=== PATIENT | male | born 1940 | race Caucasian/White ===

== ENCOUNTER → 2019-06-24 10:34 | Outpatient (CLI) | payer MEDICARE, OTHER, SELFPAY ==
--- NOTE | 2019-06-24 | DI.MRI.S_ITS ---
PROCEDURE: MR WRIST RT WO CON INDICATIONS: RIGHT WRIST PAIN TECHNIQUE: Noncontrast coronal proton density fast spin echo and T2 fast spin echo with fat saturation; coronal 3-D gradient echo, axial T1 spin echo and T2 fast spin echo with fat saturation, sagittal T1 spin echo through the wrist. COMPARISON: None. FINDINGS: Image quality: Excellent. Bones and cartilage: Moderate osteoarthritic changes throughout wrist joints are seen with extensive joint space narrowing, subchondral sclerosis and edema throughout distal radius, ulnar, and proximal carpal rope. Subchondral cyst formation versus bony erosive changes are noted involving distal radius, ulnar, scaphoid, lunate and draped atrium. Finding is most prominent involving distal radius. No acute fracture or dislocation. There is dorsal tilt of the lunate with increased scapholunate angle and capitolunate angle consistent with dorsal intercalated segmental instability. No gross avascular necrosis is seen. Carpal ligaments: There is rupture of the scapholunate ligament with widening of scapholunate interval. The lunotriquetral ligaments appear intact. In the absence of intra-articular contrast, the extrinsic carpal ligaments are not well identified. On sagittal images, the pisohamate ligament is not well-seen. Triangular fibrocartilage complex: There is nonvisualization of normal angula fibrocartilage complex consistent with chronic complex tear. Tendinosis and intrasubstance partial-thickness tear involving the adjacent extensor carpi ulnaris tendon is seen. Tendons and soft tissues: Lobulated cystic structure is noted in radial and volar aspect of wrist and measures up to 1.6 x 2 x 3.1 cm in its largest dimensions. This structure appears to be communicating with the adjacent radiocarpal joint space and may represent a enlarged synovial cyst given its location and appearance. A second 1.3 x 0.6 x 1.4 cm cystic structure is seen in lateral aspect of wrist joint superficial to the abductor pollicis longus tendon and may represent a ganglion cyst in this area. The carpal tunnel structures appear normal, including the median nerve. The ulnar nerve appears normal within Guyon's canal. All six extensor tendon compartments demonstrate normal morphology, without pathologic tendon sheath fluid. IMPRESSION: 1. Moderate osteophytic changes throughout wrist joints as described above. Extensive subcortical cyst formation in carpal bones, distal radius and ulna, erosion secondary to inflammatory arthropathy cannot be excluded. 2. 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 No avascular necrosis is seen. 3. Suggestion of a 1.6 x 2 x 3.1 cm synovial cyst in volar and radial aspect of left wrist communicating with radiocarpal joint. Suggestion of a 1.3 x 0.6 x 1.4 cm ganglion cyst superficial to the abductor pollicis longus tendon at the level of radial styloid. 4. Suggestion of ruptured scapholunate ligament. Tendinosis and low-grade intrasubstance partial-thickness tear involving the extensor carpi ulnaris tendon. 5. Suggestion of chronic complex tear involving triangular fibrocartilage. Dictated by: Bulmaro Wilson M.D. on 06/24/2019 at 13:39 Approved by: Bulmaro Wilson M.D. on 06/25/2019 at 10:08
== END ==
PROVIDERS: PCP Family Medicine; Visit Provider Orthopaedic Surgery
DX: M25.531 Pain in right wrist (principal)
CPT/HCPCS: 73221

== ENCOUNTER 2020-01-05 09:36 | Emergency (ER) | payer MEDICARE, OTHER, SELFPAY ==
[2020-01-05] VITALS (20 sets, daily range): BP systolic 111–141; BP diastolic 56–63; PULSE 28–38; RESP 17–31; TEMP 36.1; O2SAT 90–97; BMI 23.6
--- NOTE | 2020-01-05 09:44 | DI.RAD.S_ITS ---
PROCEDURE: XR CHEST 1V INDICATIONS: cp TECHNIQUE: One view of the chest was acquired. COMPARISON: [facility], , CHEST 2 VIEW, 02/06/2015, 19:25. FINDINGS: Surgical changes and devices: Knee defibrillator pad is evident overlying the right superior hemithorax. Lungs and pleura: Prominent lucency within the right hemithorax is similar to the previous exam and felt to represent bolus changes. No definite pneumothorax is appreciated. No pulmonary consolidation is evident. There is no pleural effusion. Interstitial prominence within the perihilar regions is noted. Mediastinum: Mediastinal contours appear normal. Heart size is normal. There is aortic atherosclerosis. Bones and chest wall: No suspicious bony lesions. Degenerative changes of the shoulders and spine are not well characterized. However, there does appear to be pseudoarticulation of the humeral heads with the undersurface of the acromion, suggesting chronic bilateral rotator cuff tears. Overlying soft tissues appear unremarkable. IMPRESSION: 1. Perihilar interstitial prominence probably relates to chronic interstitial changes. 2. No definite pneumonia. 3. Bullous changes within the right superior lung. Dictated by: Clark Cote M.D. on 01/05/2020 at 9:14 Approved by: Clark Cote M.D. on 01/05/2020 at 9:16
--- NOTE | 2020-01-05 09:55 | ED_ITS ---
HPI - Chest Pain General Chief Complaint: Weakness Stated Complaint: Chest feels compressed.Low BP Time Seen by Provider: 01/05/20 09:43 History of Present Illness HPI narrative: Patient here for often on substernal chest pressure 5/10 since Friday with headache. Heart rate noted. Denies any changes with his metoprolol. Takes 12.5 mg at bedtime. Director Construction Services is Dr. Kinney in [place]. No recent cardiac workup or testing. Patient states has history of stents, some have failed. Is on daily aspirin and Lipitor. Complains of generalized weakness and exertional dyspnea. No numbness tingling weakness or syncope. No recent illness cough cold congestion fever chills. Patient has not taken Viagra in at least 1 week Related Data Home Medications Medication Instructions Recorded Confirmed atorvastatin [Lipitor] 40 mg PO HS #0 02/27/17 07/13/19 ibuprofen 800 mg PO TID #0 02/27/17 07/13/19 sildenafil [Viagra] 100 mg PO PRN PRN #0 02/27/17 07/13/19 aspirin 81 mg tablet,delayed 81 mg PO DAILY 07/13/19 07/13/19 release mv,Ca,gsn-igeu-LX-lycopene PO 07/13/19 07/13/19 Allergies Allergy/AdvReac Type Severity Reaction Status Date / Time tetracycline [TETRACYCLINE] Allergy Mild upset Verified 07/13/19 09:58 stomach Review of Systems Review of Systems Narrative: GENERAL: Denies chills, fatigue, malaise, fever, sweats. HEENT: Denies sinus pain, ear pain, sore throat, difficulty swallowing, dizziness. RESPIRATORY: Denies cough, wheezing, hemoptysis, sputum. Complains of dyspnea CARDIOVASCULAR: Denies palpitations, orthopnea, edema, complains of chest pr essure GASTROINTESTINAL: Denies nausea, vomiting, abdominal pain, diarrhea, constipation, melena. : Denies dysuria, frequency, incontinence, hematuria, urinary retention. MUSCULOSKELETAL: denies weakness, joint pain, or bony pain SKIN: Denies rash, skin lesions, or other NEUROLOGIC: Denies weakness, headache, numbness, change in speech, confusion, seizures, incoordination. PSYCHIATRIC: No concerning psychosocial issues. ROS Unobtainable: All systems reviewed & are unremarkable except as noted in HPI and below Patient History Medical History Bunion of great toe of left foot (Acute) Callus of foot (Acute) Social History Smoking Status: Former smoker Smoking Status: Former smoker (Quit 1984) Exam Narrative Exam Narrative: GENERAL: patient appears stated age. Well-nourished, well- developed patient, in no distress, not toxic HEAD: Atraumatic. Normocephalic. EYES: Pupils equal round and reactive. Extraocular motions intact. No scleral icterus. No injection or drainage. ENT: Nose without bleeding, purulent drainage. Throat without erythema, tonsillar hypertrophy or exudate. Airway patent. NECK: Trachea midline. Non tender CARDIOVASCULAR: Regular rate and rhythm without murmurs, gallops, or rubs. Bradycardic RESPIRATORY: Clear to auscultation. Breath sounds equal bilaterally. No wheezes, rales, or rhonchi. GASTROINTESTINAL: Abdomen soft, non-tender, nondistended. EXTREMITIES: No edema or joint tenderness. BACK: Nontender without deformity or crepitance. No flank tenderness. NEURO: AOx4. SKIN: No rash or erythema of visible areas PSYCH: Not anxious, is cooperative Initial Vital Signs Initial Vital Signs: Vital Signs Pulse Rate 32 L 01/05/20 09:54 Respiratory Rate 21 01/05/20 09:54 Pulse Oximetry 97 01/05/20 09:54 Course Course Course Narrative: Time 12:06 p.m.. Spoke with hospitalist dr tellez, at [facility], he will admit the patient, where I spoke with director community center and EKG showing third-degree block. No intervention at this time Decision to Admit Date: 01/05/20 Decision to Admit time: 12:06 Orders Ordered: Discontinued Medications Aspirin (Aspirin Chew) 324 mg PO NOW ONE Stop: 01/05/20 09:59 Last Admin: 01/05/20 10:04 Dose: 243 mg Documented by: RMARTIN Sodium Chloride (Normal Saline 0.9%) 1,000 mls @ 1,000 mls/hr IV BOLUS ONE Stop: 01/05/20 12:09 Last Infusion: 01/05/20 12:20 Dose: 0 mls/hr Documented by: Admin: 01/05/20 11:15 Dose: 1,000 mls/hr Documented by: CRISTOPHER Reevaluation(s) Reevaluation #1: Blood pressure systolic 111, heart rate remains 30, Time: 11:15 Reevaluation #2: . Patient awake alert oriented. No pain. Reevaluation #3: l Consultations Consultation #1: Spoke with cardiology dr ritter...wants dr kinney contacted directly Time: : Consultation #2: Spoke with equipment operator warehouse at [facility], no beds available. Have to try [facility] or any other, currently on phone with [facility] equipment operator warehouse Time: 11:42 Consultation #3: s/w dr plascencia with [facility] cardiology.. Reviewed EKGs with him. He states no intervention indicated at this time no surgery no transfer indicated, patient is on metoprolol and needs to be off the metoprolol and observed. Patient can stay at this hospital or be transferred to [facility]. He states no bicarb indicated this time Calling our director community center again, dr manriquez, spoke with him and he states patient needs to be transferred to [facility] Vital Signs Vital signs: Vital Signs - 8 hr 01/05/20 09:54 01/05/20 10:00 01/05/20 10:01 Temperature 97 F L Pulse Rate 32 L 32 L 32 L Respiratory Rate 21 21 23 Blood Pressure 141/62 H 141/62 H Pulse Oximetry 97 97 96 01/05/20 10:30 01/05/20 10:31 01/05/20 11:00 Temperature Pulse Rate 31 L 31 L 30 L Respiratory Rate 26 H 24 17 Blood Pressure 120/56 L Pulse Oximetry 94 94 96 01/05/20 11:06 01/05/20 11:09 01/05/20 11:30 Temperature Pulse Rate 30 L 31 L 30 L Respiratory Rate 24 23 23 Blood Pressure 118/57 L 111/56 L Pulse Oximetry 96 96 95 01/05/20 11:32 Temperature Pulse Rate 30 L Respiratory Rate 17 Blood Pressure 125/59 L Pulse Oximetry 96 MDM - Chest Pain Differential Diagnosis Differential diagnosis: Likely unstable angina pectoris, chest pain and other (Third-degree block) Medical Records Data Attestation: I reviewed the patient's medical records. Lab Data Attestation: I reviewed the patient's lab results. Result diagrams: 01/05/20 09:52 01/05/20 09:52 Labs: Lab Results 01/05/20 01/05/20 01/05/20 Range/Units 09:52 09:52 09:52 WBC 9.3 (4.5-11.0) X10^3/uL RBC 4.85 (4.5-5.9) X10^6/uL Hgb 15.3 (13.5-17.5) g/dL Hct 44.6 (41-53) % MCV 91.9 (80-100) fL MCH 31.4 (26-34) PG MCHC 34.2 (30-36) % RDW 14.5 (11.6-14.8) % Plt Count 157 (150-400) X10^3/uL Neut % (Auto) 77.1 H (50-75) % Lymph % (Auto) 14.8 L (25-40) % [place] % (Auto) 7.0 (3-14) % Eos % (Auto) 0.6 L (2-4) % Baso % (Auto) 0.5 (0-2) % Neut # (Auto) 7100 H (5127-5565) /uL Lymph # (Auto) 1400 (3329-7115) /uL [place] # (Auto) 600 (0-900) /uL Eos # (Auto) 100 (0-450) /uL Baso # (Auto) 0 (0-100) /uL PT 10.8 (10.1-12.7) SECONDS INR 0.9 (0.9-1.3) APTT 31 (26.4-36.2) SECONDS Sodium 132 L (137-145) mmol/L Potassium 4.3 (3.4-5.1) mmol/L Chloride 98 (98-107) mmol/L Carbon Dioxide 23 (22-32) mmol/L BUN 51 H (9-20) mg/dL Creatinine 1.65 H (0.66-1.25) mg/dL Estimated GFR 40.3 L (>60) mL/min BUN/Creatinine Ratio 30.9 H (6-22) Glucose 200 H (80-110) mg/dL Calcium 9.2 (8.4-10.2) mg/dL Total Bilirubin 0.9 (0.2-1.3) mg/dL AST 34 (17-59) IU/L ALT 39 (<50) IU/L Alkaline Phosphatase 102 (38-126) U/L Total Creatine Kinase 69 (55-170) U/L CK-MB (CK-2) TNP CK-MB (CK-2) Rel Index TNP Troponin I 0.036 H (0.01-0.034) ng/mL Total Protein 6.6 (6.3-8.2) g/dL Albumin 4.3 (3.5-5.0) g/dL Globulin 2.3 (1.7-4.1) g/dL Albumin/Globulin Ratio 1.9 (1.0-2.8) Lipase 419 H (23-300) U/L COVID-19 PCR (Negative) 01/05/20 01/05/20 Range/Units 10:14 13:18 WBC (4.5-11.0) X10^3/uL RBC (4.5-5.9) X10^6/uL Hgb (13.5-17.5) g/dL Hct (41-53) % MCV (80-100) fL MCH (26-34) PG MCHC (30-36) % RDW (11.6-14.8) % Plt Count (150-400) X10^3/uL Neut % (Auto) (50-75) % Lymph % (Auto) (25-40) % [place] % (Auto) (3-14) % Eos % (Auto) (2-4) % Baso % (Auto) (0-2) % Neut # (Auto) (9127-3382) /uL Lymph # (Auto) (7961-3023) /uL [place] # (Auto) (0-900) /uL Eos # (Auto) (0-450) /uL Baso # (Auto) (0-100) /uL PT (10.1-12.7) SECONDS INR (0.9-1.3) APTT (26.4-36.2) SECONDS Sodium (137-145) mmol/L Potassium (3.4-5.1) mmol/L Chloride (98-107) mmol/L Carbon Dioxide (22-32) mmol/L BUN (9-20) mg/dL Creatinine (0.66-1.25) mg/dL Estimated GFR (>60) mL/min BUN/Creatinine Ratio (6-22) Glucose (80-110) mg/dL Calcium (8.4-10.2) mg/dL Total Bilirubin (0.2-1.3) mg/dL AST (17-59) IU/L ALT (<50) IU/L Alkaline Phosphatase (38-126) U/L Total Creatine Kinase (55-170) U/L CK-MB (CK-2) CK-MB (CK-2) Rel Index Troponin I 0.042 H (0.01-0.034) ng/mL Total Protein (6.3-8.2) g/dL Albumin (3.5-5.0) g/dL Globulin (1.7-4.1) g/dL Albumin/Globulin Ratio (1.0-2.8) Lipase (23-300) U/L COVID-19 PCR Negative (Negative) Imaging Data Chest x-ray: Radiologist's Impression: [address] [place] [address] [address] XRay Report Signed Patient: Kenney Liriano FMR#: [id number] : 9Acct:[id number] Age/Sex: 79 / MDate of Service: 01/05/20 Loc: ED Accession Number: [id number] Procedure: XR chest 1V Ordering Provider: John Campos MD PROCEDURE: XR CHEST 1V INDICATIONS: cp TECHNIQUE: One view of the chest was acquired. COMPARISON: [facility], CHEST 2 VIEW, 02/06/2015, 19:25. FINDINGS: Surgical changes and devices: Knee defibrillator pad is evident overlying the right superior hemithorax. Lungs and pleura: Prominent lucency within the right hemithorax is similar to the previous exam and felt to represent bolus changes. No definite pneumothorax is appreciated. No pulmonary consolidation is evident. There is no pleural effusion. Interstitial prominence within the perihilar regions is noted. Mediastinum: Mediastinal contours appear normal. Heart size is normal. There is aortic atherosclerosis. Bones and chest wall: No suspicious bony lesions. Degenerative changes of the shoulders and spine are not well characterized. However, there does appear to be pseudoarticulation of the humeral heads with the undersurface of the acromion, suggesting chronic bilateral rotator cuff tears. Overlying soft tissues appear unremarkable. IMPRESSION: 1. Perihilar interstitial prominence probably relates to chronic interstitial changes. 2. No definite pneumonia. 3. Bullous changes within the right superior lung. Dictated by: Clark Cote M.D. on 01/05/2020 at 9:14 Approved by: Clark Cote M.D. on 01/05/2020 at 9:16 ECG Data Attestation: I personally reviewed and interpreted this ECG as follows: Interpretation: EKG ventricular rate 34. Left bundle-branch block. Possible third-degree block, EKG different from February 06, 2015 at 7:59 p.m.. Repeat EKG at 11:12 a.m.. Ventricular rate 30, persisting third-degree block MDM Narrative Medical decision making narrative: Pacer pads placed as precautionary. Blood pressure stable. Will need to transfer patient to [facility]... Blood work is pending Time 11:57 a.m., I have spoken with 2 director community center, different opinion disposition placement for patient. At this time Dr. Burns, with [facility] states hospice care admit at [facility] or he will admit if they do not. Discharge Plan Departure Patient Disposition: [facility] Clinical Impression: Heart block AV third degree Discharge Date/Time: 01/05/20 13:44 Prescriptions: No Action aspirin [Aspir-81] 81 mg tablet,delayed release (DR/EC) 81 mg PO DAILY RF: 0 mv,Ca,xyg-ekfp-ZU-lycopene PO RF: 0 atorvastatin [Lipitor] 40 MG tablet 40 mg PO HS Qty: 0 RF: 0 ibuprofen 800 MG tablet 800 mg PO TID Qty: 0 RF: 0 sildenafil [Viagra] 100 MG tablet 100 mg PO PRN PRNQty: 0 RF: 0 Referrals: Robert Jeff MD [Primary Care Provider] -
--- NOTE | 2020-01-05 10:00 | PC.NURSE ---
Patient states starting having weakness Friday night. Came in today because of low pulse recording at home. Patient reports extreme fatigue, headache on and off, and pressure in chest that has been continuous since Friday. Reports shortness or breath and has some audible wheezing.
[2020-01-05 10:02] LABS: Add Manual Diff / Slide Review NO; Basophils Absolute Auto 0 /uL (0-100); Basophils Percent Auto 0.5 % (0-2); Eosinophils Absolute Auto 100 /uL (0-450); Eosinophils Percent Auto 0.6 % (2-4); Hematocrit 44.6 % (41-53); Hemoglobin 15.3 g/dL (13.5-17.5); Lymphocytes Absolute Auto 1400 /uL (1100-4500); Lymphocytes Percent Auto 14.8 % (25-40); Mean Corpuscular HGB Conc 34.2 % (30-36); Mean Corpuscular Hemoglobin 31.4 PG (26-34); Mean Corpuscular Volume 91.9 fL (80-100); Monocytes Absolute Auto 600 /uL (0-900); Neutrophils Absolute Auto 7100 /uL (1500-7000); Neutrophils Percent Auto 77.1 % (50-75); Platelet Count 157 X10^3/uL (150-400); Red Blood Cell Count 4.85 X10^6/uL (4.5-5.9); Red Cell Distribution Width 14.5 % (11.6-14.8); White Blood Cell Count 9.3 X10^3/uL (4.5-11.0)
[2020-01-05] MEDS: ASPIRIN 81 MG CHEW TAB 324 MG PO (10:04)
[2020-01-05 10:10] LABS: INR 0.9 (0.9-1.3); Prothrombin Time 10.8 SECONDS (10.1-12.7)
[2020-01-05 10:13] LABS: PTT Partial Thromboplastin Tim 31 SECONDS (26.4-36.2)
[2020-01-05 10:14] LABS: Alanine Aminotransferase 39 IU/L (<50); Albumin 4.3 g/dL (3.5-5.0); Albumin Globulin Ratio 1.9 (1.0-2.8); Alkaline Phosphatase 102 U/L (38-126); Aspartate Aminotransferase 34 IU/L (17-59); BUN Creatinine Ratio 30.9 (6-22); Bilirubin Total 0.9 mg/dL (0.2-1.3); Blood Urea Nitrogen 51 mg/dL (9-20); Calcium 9.2 mg/dL (8.4-10.2); Carbon Dioxide 23 mmol/L (22-32); Chloride 98 mmol/L (98-107); Creatine Kinase 69 U/L (55-170); Estimated Glomerular Filt Rate 40.3 mL/min (>60); Globulin 2.3 g/dL (1.7-4.1); Glucose 200 mg/dL (80-110); HEMOLYSIS < 15 (0-50); Lipase 419 U/L (23-300); Potassium 4.3 mmol/L (3.4-5.1); Sodium 132 mmol/L (137-145); Total Protein 6.6 g/dL (6.3-8.2)
[2020-01-05 10:26] LABS: Troponin I 0.036 ng/mL (0.01-0.034)
[2020-01-05] MEDS: SODIUM CHLORIDE 0.9% 1,000 ML 1000 ML IV (11:15)
[2020-01-05 11:18] LABS: COVID19 -Nasal RAPID Negative (Negative)
[2020-01-05 13:53] LABS: Troponin I 0.042 ng/mL (0.01-0.034)
== END 2020-01-05 13:44 | disposition short-term general hospital (02) ==
PROVIDERS: Emergency Provider Emergency Medicine; PCP Family Medicine
DX: I44.2 Atrioventricular block, complete (principal); R51 Headache; Z79.82 Long term (current) use of aspirin; I95.9 Hypotension, unspecified; R06.00 Dyspnea, unspecified
CPT/HCPCS: 36415; 71045; 80053; 82550; 83690; 84484; 85025; 85610; 85730; 87635; 93005; 96360; 99285

== ENCOUNTER → 2022-05-20 10:03 | Outpatient (CLI) | payer MEDICARE, OTHER, SELFPAY ==
--- NOTE | 2022-05-20 | DI.ECHO.S_ITS ---
Version: 1 Study ID: [id number] [place] [id number] Name: YASIR RUTH Study Date: 05/20/2022, 10: 14 AM : 1940 BP: 132 / 69 mmHg Gender: Male Height: 64 in Age: 82 Years Weight: 130 lb BSA: 1.63 mA? Ordering: VICENTA BASS Referring: VICENTA BASS Clinician: Nena Melendez Reason For Study: SHORTNESS OF BREATH History: Summary Statements Sinus rhythm with wide QRS complexes most likely due to RV pacing. Normal LV size and wall thickness. Septal dyssynchrony consistent with RV pacing; basal inferior hypokinesis and basal inferolateral hypokinesis consistent with prior PDA territory infarction. Otherwise normal wall motion. EF is 50-55% Moderate LA enlargement. Otherwise normal chamber sizes. No significant valvular abnormalities. Compared to prior study 09/19/2014 Micra device is newly visualized. Procedure: A two-dimensional transthoracic echocardiogram with color flow and Doppler was performed. The study quality was technically adequate. Comparison is made with the echocardiogram of 09/19/2014. The patient has a paced rhythm. The heart rate ranged between 65-74 bpm during the study. Left Ventricle: The left ventricle is normal in size and wall thickness. Left ventricular ejection fraction is estimated to be 50-55%. Right Ventricle: The right ventricle is normal size. The right ventricular systolic function is normal. Atria: The left atrium is moderately dilated. Right atrial size is normal. There is no Doppler evidence for an interatrial shunt. Mitral Valve: The mitral valve leaflets appear mildly thickened, but open well. There is mild mitral regurgitation. Aortic Valve: The aortic valve is trileaflet. The aortic valve opens well. There is no aortic valve stenosis. There is mild aortic regurgitation. Tricuspid Valve: The tricuspid valve is normal in structure and function. There is mild tricuspid regurgitation. The right ventricular systolic pressure is estimated to be at least 23 mmHg based on an estimated right atrial pressure of 3 mm Hg. Pulmonic Valve: The pulmonic valve is not well visualized. There is no pulmonic valvular regurgitation. Great Vessels: The aortic root is normal size. The dimensions of the ascending aorta are normal. The IVC is of normal diameter and collapses greater than 50% with a sniff. This suggests a low right atrial pressure of 3 mm Hg. Pericardium/ Pleura: There is no pericardial effusion. There is no pleural effusion. 2D and M-Mode Measurements and Calculations LVIDd: 4.3 cm LVOT diam: 2.11 cm LVIDs: 3.7 cm Ao root diam: 3.1 cm IVSd: 1.02 cm asc Aorta Diam: 3.7 cm LVPWd: 0.95 cm LV mazariegos. diameter/BSA (cm/m^2): 2.6 LV sys. diameter/BSA (cm/m^2): 2.25 RVD1 (basal): 3.2 cm IVC diam: 1.85 cm TAPSE: 2.00 cm LA A4 area: 21.2 visual lead? RA area: 16.3 visual lead? LA A2 area: 22.2 visual lead? RA long axis: 5.1 cm LA length (vol): 5.7 cm RA vol: 44.4 ml LA vol: 69.6 ml RA : 27.2 ml/mA? LA vol index: 42.7 ml/mA? Doppler Measurements and Calculations Ao V2 max: 135.0 cm/sec LVOT Max Russ: 69.9 cm/sec Ao V2 mean: 93.1 cm/sec LV V1 max P.95 mmHg Ao V2 VTI: 32.8 cm LV V1 VTI: 12.5 cm Ao max P.3 mmHg Ao mean P.0 mmHg JESSIE(I,D): 1.33 visual lead? JESSIE(V,D): 1.82 visual lead? JESSIE indexed to BSA (cm^2/m^2): 0.82 sev ratio: 0.38 MV E max russ: 63.2 cm/sec MV dec time: 0.22 sec MV A max russ: 92.1 cm/sec MV E/A: 0.69 Med Peak E' Russ: 3.7 cm/sec Lat Peak E' Russ: 8.2 cm/sec E/e' average: 12.5 TR max russ: 221.3 cm/sec TR max P.6 mmHg Electronically signed by: Vicenta Bass M.D. 05/21/2022, 3: 15 PM
== END ==
PROVIDERS: PCP Internal Medicine; Referring Provider Internal Medicine; Visit Provider Internal Medicine
DX: R06.02 Shortness of breath (principal); I08.3 Combined rheumatic disorders of mitral, aortic and tricuspid valves
CPT/HCPCS: 93306

== ENCOUNTER 2024-11-07 16:01 | Inpatient (IN) | payer MEDICARE, OTHER, SELFPAY ==
[2024-11-07] VITALS (17 sets, daily range): BP systolic 134–173; BP diastolic 63–72; PULSE 63–82; RESP 18; TEMP 36.6; O2SAT 88–99; BMI 22.4
--- NOTE | 2024-11-07 16:11 | DI.RAD.S_ITS ---
PROCEDURE: XR HAND LT MIN 3V INDICATIONS: fall, pain TECHNIQUE: 3 views of the hand(s) acquired. COMPARISON: None. FINDINGS: Bones: No fractures or dislocations. Carpal bones are normally aligned. No suspicious bony lesions. Degenerative changes are seen throughout, which are most prominent involving the 1st carpometacarpal joint. Milder degenerative changes are seen elsewhere. There is abnormal widening of the scapholunate interface, 5 mm. There is focal irregularity and narrowing of the radiocarpal joint. Soft tissues: No suspicious soft tissue calcifications. IMPRESSION: No displaced fracture can be seen on these plain films. Focal prominent degenerative change seen involving the 1st carpometacarpal joint. Presumed prior scapholunate ligament tear, with widening of the scapholunate interface. Dictated by: Abdelrahman Rodriguez M.D. on 11/07/2024 at 15:59 Approved by: Abdelrahman Rodriguez M.D. on 11/07/2024 at 16:01
--- NOTE | 2024-11-07 16:11 | DI.RAD.S_ITS ---
PROCEDURE: XR ELBOW LT MIN 3V INDICATIONS: fall, pain TECHNIQUE: 3 views of the elbow were acquired. COMPARISON: None. FINDINGS: Bones: No fractures or dislocations. No suspicious bony lesions. Soft tissues: No elbow joint effusion. No suspicious soft tissue calcifications. IMPRESSION: No acute elbow fracture or dislocation. No significant joint effusion. Dictated by: Bulmaro Wilson M.D. on 11/07/2024 at 17:00 Approved by: Bulmaro Wilson M.D. on 11/07/2024 at 17:00
--- NOTE | 2024-11-07 16:11 | DI.RAD.S_ITS ---
PROCEDURE: XR HIP W PEL IF DONE LT 2V INDICATIONS: fall, pain TECHNIQUE: AP pelvis with lateral view(s) of the left hip(s). COMPARISON: [facility], CR, XR HAND LT MIN 3V, 11/07/2024, 16:22. [facility], CR, XR ELBOW LT MIN 3V, 11/07/2024, 16:22. FINDINGS: Bones: There is a mildly impacted transcervical fracture seen involving the left femoral neck. No additional fractures are detected. No hip dislocation can be seen. Generalized degenerative changes are seen. Soft tissues: The visualized bowel gas pattern is normal. No suspicious soft tissue calcifications. IMPRESSION: Mildly impacted transcervical fracture of the left femoral neck. Dictated by: Abdelrahman Rodriguez M.D. on 11/07/2024 at 16:02 Approved by: Abdelrahman Rodriguez M.D. on 11/07/2024 at 16:04
--- NOTE | 2024-11-07 18:13 | ED.FALL ---
HPI - Fall General Chief Complaint: Fall Stated Complaint: fell left arm bleeding, hip pain Time Seen by Provider: 11/07/24 17:57 Source: patient Mode of arrival: Ambulatory History of Present Illness HPI Narrative: 84-year-old male was walking at his [place] property, tripped on something outside, had ground level fall, complains of pain in laceration to his left hand and left elbow, also pain to his left hip without laceration in that area. Walked some more on the left hip, although limping in pain. Denies loss of consciousness, nausea or vomiting. Denies neck pain. Denies truncal injuries. Denies injuries to his right lower extremity, right upper extremity. Related Data Home Medications Medication Instructions Recorded Confirmed atorvastatin 40 mg tablet (Lipitor) 40 mg PO HS ##0 02/27/17 11/08/24 aspirin 81 mg tablet,delayed 81 mg PO DAILY 07/13/19 11/08/24 release (Aspir-) losartan 100 mg tablet 100 mg PO DAILY 11/07/24 11/07/24 hydrochlorothiazide 125 mg PO DAILY 11/08/24 11/08/24 melatonin 3 mg PO BEDTIME 11/08/24 11/08/24 metoprolol tartrate 25 mg PO DAILY 11/08/24 11/08/24 timolol maleate 0.5 % eye drops 1 drp EYE-RIGHT BID 11/08/24 11/08/24 Allergies Allergy/AdvReac Type Severity Reaction Status Date / Time tetracycline [TETRACYCLINE] AdvReac Mild upset Verified 11/07/24 16:04 stomach Patient History Medical History (Updated 11/07/24 @ 22:55 by Hayden Ring MD) Bunion of great toe of left foot Callus of foot Social History household members: none Smoking Status: Former smoker Exam Narrative Exam Narrative: GENERAL: Well-developed patient, in mild distress. HEAD: Atraumatic. Normocephalic. EYES: Pupils equal round and reactive. Extraocular motions intact. No scleral icterus. No injection or drainage. ENT: Nose without bleeding, purulent drainage. Throat without erythema, tonsillar hypertrophy or exudate. Airway patent. NECK: Trachea midline. Non tender CARDIOVASCULAR: Regular rate and rhythm without murmurs, gallops, or rubs. RESPIRATORY: Clear to auscultation. Breath sounds equal bilaterally. No wheezes, rales, or rhonchi. GASTROINTESTINAL: Abdomen soft, non-tender, nondistended. EXTREMITIES: Semi-[place] laceration 1st webspace left hand 7 cm. Curvilinear laceration left elbow area 5 cm. No tenderness anatomic snuffbox. No lower limb length discrepancy. Some tenderness lateral trochanteric in left anterior hip. BACK: Nontender without deformity or crepitance. No flank tenderness. NEURO: AOx3. Motor functions grossly nonfocal SKIN: No rash or erythema of visible areas Initial Vital Signs Initial Vital Signs: Vital Signs Temperature 97.9 F 11/07/24 16:04 Pulse Rate 67 11/07/24 16:04 Respiratory Rate 18 11/07/24 16:04 Blood Pressure 153/70 H 11/07/24 16:04 Pulse Oximetry 96 11/07/24 16:04 Oxygen Delivery Method Room Air 11/07/24 16:04 Procedures Laceration Repair Laceration 1: Time of procedure: 22:38 Site: hand (Left dorsal hand curvilinear laceration in 1st webspace, no visible ligamentous bony foreign body materials) Side (If applicable): left Size (cm): 5 Description: irregular (Curvilinear in the 1st webspace dorsal aspect left hand) Depth: simple, single layer Local Anesthetic: lidocaine 1% Amount of anesthesia used (mL): 6 Pre-repair: irrigated extensively Skin layer closed with: nylon (Simple interrupted tack-down sutures) Skin layer suture size: 4-0 Number of sutures: 7 Technique: simple, interrupted Laceration 2: Time of procedure: 22:41 Site: upper extremity (Left proximal forearm elbow area flap laceration superficial) Side (If applicable): left Size (cm): 4 Description: linear Local Anesthetic: lidocaine 1% Skin layer closed with: nylon Skin layer suture size: 4-0 Number of sutures: 5 Technique: simple, interrupted Course Orders Ordered: ED Orders 11/07/24 20:10 Urinalysis and Microscopic Stat 11/07/24 22:46 CT LE LT wo con Stat Acetaminophen (Acetaminophen 325 Mg Tablet) 650 mg PO Q6H PRN PRN Reason: Fever/Mild Pain (1-3) Hydrocodone Bitart/Acetaminophen (Hydrocodone/Acet 5/325 Tablet) 1 tab PO Q4H PRN PRN Reason: Pain, Moderate (4-6) Hydromorphone HCl (Hydromorphone 0.5 Mg Inj) 0.5 mg IV Q2H PRN PRN Reason: Pain, Severe (7-10) Last Admin: 11/08/24 03:14 Dose: 0.5 mg Documented By: Admin: 11/08/24 00:32 Dose: 0.5 mg Documented By: AT Sodium Chloride (Normal Saline 0.9%) 1,000 mls @ 75 mls/hr IV CONT MOHIT Last Admin: 11/08/24 00:32 Dose: 75 mls/hr Documented By: AT Naloxone HCl (Naloxone 0.4 Mg/Ml Vial) 0.2 mg IV Q2MIN PRN PRN Reason: Opiate Reversal Ondansetron HCl (Ondansetron 4 Mg/2 Ml Inj) 4 mg IV Q8HR PRN PRN Reason: Nausea And Vomiting Discontinued Medications Bacitracin (Bacitracin Oint 0.9 Gm Pckt) 2 applic TOP NOW ONE Stop: 11/07/24 21:56 Last Admin: 11/07/24 22:08 Dose: 2 applic Documented By: APOLLO Hydromorphone HCl (Hydromorphone 0.5 Mg Inj) 0.5 mg IV NOW ONE Stop: 11/07/24 20:40 Last Admin: 11/07/24 20:45 Dose: 0.5 mg Documented By: MAGNO Lidocaine HCl (Lidocaine 2% Inj Mdv 20ml) 10 ml INJ INTRA-OP ONE Stop: 11/07/24 18:39 Last Admin: 11/07/24 18:45 Dose: Not Given Documented By: SOLA Lidocaine HCl (Lidocaine 2% Inj Mdv 20ml) 5 ml INJ INTRA-OP ONE Stop: 11/07/24 18:44 Last Admin: 11/07/24 21:44 Dose: 5 ml Documented By: APOLLO Lidocaine HCl (Lidocaine 2% Inj Mdv 20ml) 5 ml INJ INTRA-OP ONE Stop: 11/07/24 18:49 Last Admin: 11/07/24 21:44 Dose: 5 ml Documented By: APOLLO Ondansetron HCl (Ondansetron 4 Mg/2 Ml Inj) 4 mg IV NOW ONE Stop: 11/07/24 20:41 Last Admin: 11/07/24 20:44 Dose: 4 mg Documented By: MAGNO Vital Signs Vital signs: Vital Signs - 8 hr 11/07/24 20:30 11/07/24 20:30 11/07/24 21:00 Pulse Rate 71 Blood Pressure 158/67 H 134/63 Pulse Oximetry 97 Oxygen Delivery Method Oxygen Flow Rate 11/07/24 21:00 11/07/24 21:18 11/07/24 21:30 Pulse Rate 74 Blood Pressure 138/63 Pulse Oximetry 88 L 96 Oxygen Delivery Method Room Air Nasal Cannula Oxygen Flow Rate 2 11/07/24 21:30 11/07/24 22:00 11/07/24 22:00 Pulse Rate 74 82 Blood Pressure 141/66 H Pulse Oximetry 98 96 Oxygen Delivery Method Nasal Cannula Nasal Cannula Oxygen Flow Rate 2 2 11/07/24 22:30 11/07/24 22:30 Pulse Rate 73 Blood Pressure 141/67 H Pulse Oximetry 98 Oxygen Delivery Method Nasal Cannula Oxygen Flow Rate MDM - Fall Lab Data Attestation: I reviewed the patient's lab results. Lab results narrative: White blood cell count 8400, hemoglobin 15, platelets adequate. Glucose 134. BUN 20 with creatinine 0.85. Serum CO2 30. Sodium 136, potassium 4.3. Liver functions unremarkable. INR 1.0 normal. Urinalysis negative. 11/07/24 18:36 11/07/24 18:36 Labs: Lab Results 11/07/24 11/07/24 Range/Units 18:36 20:10 WBC 8.4 (4.5-11.0) X10^3/uL RBC 4.71 (4.5-5.9) X10^6/uL Hgb 15.0 (13.5-17.5) g/dL Hct 43.1 (41-53) % MCV 91.6 (80-100) fL MCH 31.9 (26-34) PG MCHC 34.8 (30-36) % RDW 15.0 H (11.6-14.8) % Plt Count 105 L (150-400) X10^3/uL Neut % (Auto) 80.8 H (50-75) % Lymph % (Auto) 10.6 L (25-40) % Morrill % (Auto) 6.8 (3-14) % Eos % (Auto) 1.3 L (2-4) % Baso % (Auto) 0.5 (0-2) % Neut # (Auto) 6800 (7156-4018) /uL Lymph # (Auto) 900 L (3902-9458) /uL [place]rill # (Auto) 600 (0-900) /uL Eos # (Auto) 100 (0-450) /uL Baso # (Auto) 0 (0-100) /uL PT 11.8 (9.4-12.5) SECONDS INR 1.0 (0.9-1.3) Sodium 136 L (137-145) mmol/L Potassium 4.3 (3.4-5.1) mmol/L Chloride 101 (98-107) mmol/L Carbon Dioxide 30 (22-32) mmol/L BUN 20 (9-20) mg/dL Creatinine 0.85 (0.66-1.25) mg/dL Estimated GFR > 60 (>60) mL/min BUN/Creatinine Ratio 23.5 H (6-22) Glucose 134 H (70-99) mg/dL Calcium 8.8 (8.4-10.2) mg/dL Total Bilirubin 1.0 (0.2-1.3) mg/dL AST 22 (17-59) IU/L ALT 21 (<50) IU/L Alkaline Phosphatase 89 (38-126) U/L Total Protein 6.3 (6.3-8.2) g/dL Albumin 4.0 (3.5-5.0) g/dL Globulin 2.3 (1.7-4.1) g/dL Albumin/Globulin Ratio 1.7 (1.0-2.8) Urine Color Yellow Urine Appearance Clear Urine pH 6.0 (4.5-8.0) Ur Specific [place] 1.010 (1.000-1.035) Urine Protein Negative (Negative) Urine Glucose (UA) Negative (Negative) g/dL Urine Ketones Negative (NEGATIVE) Urine Occult Blood Negative (Negative) Urine Nitrate Negative (Negative) Urine Bilirubin Negative (NEGATIVE) Urine Urobilinogen 0.2 (0.2) E.U./dL Ur Leukocyte Esterase Negative (NEGATIVE) Urine RBC None seen (0-5/HPF) Urine WBC None seen (0-5/HPF) Ur Squamous Epith Cells None seen (0-5/HPF) Urine Bacteria None seen (None) Ur Culture Indicated? Cult not indicated Vol Urine Centrifuged 10ml (spun) Imaging Data Extremity x-ray #1: Radiologist's Impression: [address] [address] XRay Report Signed Patient: Kenney Liriano MR#: [id number] : 1940 Acct:[id number] Age/Sex: 84 / M Date of Service: 11/07/24 Loc: ED Accession Number: [id number] Procedure: XR hip w pel LT 2V Ordering Provider: Una Walker MD PROCEDURE: XR HIP W PEL IF DONE LT 2V INDICATIONS: fall, pain TECHNIQUE: AP pelvis with lateral view(s) of the left hip(s). COMPARISON: [facility], CR, XR HAND LT MIN 3V, 11/07/2024, 16:22. [facility], CR, XR ELBOW LT MIN 3V, 11/07/2024, 16:22. FINDINGS: Bones: There is a mildly impacted transcervical fracture seen involving the left femoral neck. No additional fractures are detected. No hip dislocation can be seen. Generalized degenerative changes are seen. Soft tissues: The visualized bowel gas pattern is normal. No suspicious soft tissue calcifications. IMPRESSION: Mildly impacted transcervical fracture of the left femoral neck. Dictated by: Abdelrahman Rodriguez M.D. on 11/07/2024 at 16:02 Approved by: Abdelrahman Rodriguez M.D. on 11/07/2024 at 16:04 Extremity x-ray #2: Radiologist's Impression: [address] [address] XRay Report Signed Patient: Kenney Liriano MR#: [id number] : 1940 Acct:[id number] Age/Sex: 84 / M Date of Service: 11/07/24 Loc: ED Accession Number: [id number] Procedure: XR hand LT min 3V Ordering Provider: Una Walker MD PROCEDURE: XR HAND LT MIN 3V INDICATIONS: fall, pain TECHNIQUE: 3 views of the hand(s) acquired. COMPARISON: None. FINDINGS: Bones: No fractures or dislocations. Carpal bones are normally aligned. No suspicious bony lesions. Degenerative changes are seen throughout, which are most prominent involving the 1st carpometacarpal joint. Milder degenerative changes are seen elsewhere. There is abnormal widening of the scapholunate interface, 5 mm. There is focal irregularity and narrowing of the radiocarpal joint. Soft tissues: No suspicious soft tissue calcifications. IMPRESSION: No displaced fracture can be seen on these plain films. Focal prominent degenerative change seen involving the 1st carpometacarpal joint. Presumed prior scapholunate ligament tear, with widening of the scapholunate interface. Dictated by: Abdelrahman Rodriguez M.D. on 11/07/2024 at 15:59 Approved by: Abdelrahman Rodriguez M.D. on 11/07/2024 at 16:01 Extremity x-ray #3: Radiologist's Impression: Close Elbow X-Ray (Signed) Bulmaro Wilson - 11/07/24 Hand X-Ray (Signed) Abdelrahman Rodriguez - 11/07/24 Hip X-Ray (Signed) Abdelrahman Rodriguez - 11/07/24 Launch?[place] [address] XRay Report Signed Patient: Kenney Liriano MR#: [id number] : 1940 Acct:[id number] Age/Sex: 84 / M Date of Service: 11/07/24 Loc: ED Accession Number: [id number] Procedure: XR elbow LT min 3V Ordering Provider: Una Walker MD PROCEDURE: XR ELBOW LT MIN 3V INDICATIONS: fall, pain TECHNIQUE: 3 views of the elbow were acquired. COMPARISON: None. FINDINGS: Bones: No fractures or dislocations. No suspicious bony lesions. Soft tissues: No elbow joint effusion. No suspicious soft tissue calcifications. IMPRESSION: No acute elbow fracture or dislocation. No significant joint effusion. Dictated by: Bulmaro Wilson M.D. on 11/07/2024 at 17:00 Approved by: Bulmaro Wilson M.D. on 11/07/2024 at 17:00 Chest x-ray: Radiologist's Impression: [place] [address] XRay Report Signed Patient: Kenney Liriano MR#: [id number] : 1940 Acct:[id number] Age/Sex: 84 / M Date of Service: 11/07/24 Loc: ED Accession Number: [id number] Procedure: XR chest 1V Ordering Provider: Hayden Ring MD PROCEDURE: XR CHEST 1V INDICATIONS: pre-op TECHNIQUE: One view of the chest was acquired. COMPARISON: [facility], CR, XR CHEST 1V, 01/05/2020, 9:57. FINDINGS: Surgical changes and devices: Left sided lead less pacer is seen. Lungs and pleura: Severe bullous disease in bilateral upper lung thomas are seen worse on the right side. No pleural effusions or pneumothorax. Mediastinum: Mediastinal contours appear normal. Heart size is normal. Bones and chest wall: No suspicious bony lesions. Overlying soft tissues appear unremarkable. IMPRESSION: Severe bullous disease. No acute cardiopulmonary pathology. Dictated by: Bulmaro Wilson M.D. on 11/07/2024 at 19:14 Approved by: Bulmaro Wilson M.D. on 11/07/2024 at 19:15 ECG Data Attestation: I personally reviewed and interpreted this ECG as follows: Interpretation: Atrial sensed ventricular paced rhythm, rate 71 beats per minute. [place] 254, QRS 170, QTC 478. MDM Narrative Medical decision making narrative: 84-year-old male with mechanical ground level fall at home 2:00 p.m. earlier today, with left hip pain, also skin tear lacerations to the left elbow and left 1st webspace of the hand. he does not take blood thinner medications. No neck pain. No head injury symptoms. Screening x-rays ordered from triage. X-ray left hand negative. X-rays left elbow negative. X-rays left hip shows transcervical fracture with mild impaction. Preop studies ordered. Last tetanus less than 5 years ago. See tacked down laceration repair procedure notes for left hand and left elbow area superficial flap-like avulsion skin lacerations, tacked down. Nonstick dressings applied. X-ray left elbow, no fracture. See radiology report. X-ray left hand, possible scapholunate widening, no acute fracture. See radiology report. X-ray left hip, femoral neck fracture noted. See radiology report. 2229, case discussed with Orthopedic surgery Dr. Ojeda, who reviewed x-ray, we would like additional anatomic information CT for surgical planning. Admit to hospitalist service otherwise. Regarding wrist okay to be placed in Velcro wrist splint for now. 2245, case discussed with hospitalist Dr. Reed who accepts patient for admission to inpatient service CT left hip reconfirms impacted femoral neck fracture, no other injuries described. See radiology report. Discharge Plan Departure Patient Disposition: Admitted As Inpatient Clinical Impression: Femur fracture, left, Elbow laceration, Hand laceration, Scapho-lunate dissociation Admit Date/Time: 11/07/24 22:46 Admit Provider: Eddie Reed
--- NOTE | 2024-11-07 18:15 | EKG_ITS ---
[place] [address] [place] [id number] Test Date: 2024-11-07 Pat Name: Kenney Liriano Department: [facility] Room: Gender: Male [id number]: WIL : 1940 Requested By: Order Number: [id number] Reading MD: Joseph Hernandez Measurements Intervals [place] Rate: 71 P: 74 CA: 254 QRS: 89 QRSD: 170 T: -49 QT: 440 QTc: 478 Interpretive Statements Atrial-sensed ventricular-paced rhythm with prolonged AV conduction Electronically Signed On 11-11-2024 17:06:54 PDT by Joseph Hernandez
--- NOTE | 2024-11-07 18:16 | DI.RAD.S_ITS ---
PROCEDURE: XR CHEST 1V INDICATIONS: pre-op TECHNIQUE: One view of the chest was acquired. COMPARISON: [facility], CR, XR CHEST 1V, 01/05/2020, 9:57. FINDINGS: Surgical changes and devices: Left sided lead less pacer is seen. Lungs and pleura: Severe bullous disease in bilateral upper lung thomas are seen worse on the right side. No pleural effusions or pneumothorax. Mediastinum: Mediastinal contours appear normal. Heart size is normal. Bones and chest wall: No suspicious bony lesions. Overlying soft tissues appear unremarkable. IMPRESSION: Severe bullous disease. No acute cardiopulmonary pathology. Dictated by: Bulmaro Wilson M.D. on 11/07/2024 at 19:14 Approved by: Bulmaro Wilson M.D. on 11/07/2024 at 19:15
[2024-11-07 18:52] LABS: Add Manual Diff / Slide Review NO; Basophils Absolute Auto 0 /uL (0-100); Basophils Percent Auto 0.5 % (0-2); Eosinophils Absolute Auto 100 /uL (0-450); Eosinophils Percent Auto 1.3 % (2-4); Hematocrit 43.1 % (41-53); Lymphocytes Absolute Auto 900 /uL (1100-4500); Lymphocytes Percent Auto 10.6 % (25-40); Mean Corpuscular HGB Conc 34.8 % (30-36); Mean Corpuscular Hemoglobin 31.9 PG (26-34); Mean Corpuscular Volume 91.6 fL (80-100); Monocytes Absolute Auto 600 /uL (0-900); Monocytes Percent Auto 6.8 % (3-14); Neutrophils Absolute Auto 6800 /uL (1500-7000); Neutrophils Percent Auto 80.8 % (50-75); Platelet Count 105 X10^3/uL (150-400); Red Blood Cell Count 4.71 X10^6/uL (4.5-5.9); White Blood Cell Count 8.4 X10^3/uL (4.5-11.0)
[2024-11-07 18:56] LABS: Prothrombin Time 11.8 SECONDS (9.4-12.5)
[2024-11-07 18:58] LABS: Alanine Aminotransferase 21 IU/L (<50); Albumin Globulin Ratio 1.7 (1.0-2.8); Alkaline Phosphatase 89 U/L (38-126); Aspartate Aminotransferase 22 IU/L (17-59); BUN Creatinine Ratio 23.5 (6-22); Blood Urea Nitrogen 20 mg/dL (9-20); Calcium 8.8 mg/dL (8.4-10.2); Carbon Dioxide 30 mmol/L (22-32); Chloride 101 mmol/L (98-107); Estimated Glomerular Filt Rate > 60 mL/min (>60); Globulin 2.3 g/dL (1.7-4.1); Glucose 134 mg/dL (70-99); HEMOLYSIS 15 (0-50); Potassium 4.3 mmol/L (3.4-5.1); Sodium 136 mmol/L (137-145); Total Protein 6.3 g/dL (6.3-8.2)
[2024-11-07] MEDS: ONDANSETRON 4 MG/2 ML INJ IV (20:44)
[2024-11-07] MEDS: HYDROMORPHONE 0.5 MG INJ IV (20:45)
[2024-11-07 20:59] LABS: Appearance Urine UA CLEAR; Bilirubin Urine UA NEGATIVE (NEGATIVE); Color Urine UA YELLOW; Glucose Urine UA NEGATIVE (Negative); Ketones Urine UA NEGATIVE (NEGATIVE); Leukocyte Esterase Urine UA NEGATIVE (NEGATIVE); Nitrite Urine UA NEGATIVE (Negative); Occult Blood Urine UA NEGATIVE (Negative); Protein Urine UA NEGATIVE (Negative); Urobilinogen Urine UA 0.2 E.U./dL (0.2)
[2024-11-07 21:09] LABS: Urine Volume 10mL (spun)
[2024-11-07 21:10] LABS: Bacteria Urine None Seen; Culture Indicated Urine Cult Not Indicated; RBC Urine None Seen (0-5/HPF); Squamous Epithelial Cell Urine None Seen (0-5/HPF); WBC Urine None Seen (0-5/HPF)
--- NOTE | 2024-11-07 21:19 | PC.NURSE ---
Pt noted with desats to 84% on RA after dilaudid admin. Placed on O2 at @2L NC. Sats improved to mid-90's. Pt easily arousable.
[2024-11-07] MEDS: LIDOCAINE 2% INJ MDV 20ML 5 ML INJ ×2 (21:44)
[2024-11-07] MEDS: BACITRACIN OINT 0.9 GM PCKT 2 APPLIC TOP (22:08)
--- NOTE | 2024-11-07 22:46 | DI.CT.S_ITS ---
PROCEDURE: CT LE LT W CON INDICATIONS: ortho request for surgical approach plan TECHNIQUE: Noncontrast 3 mm axial sections acquired through the bony pelvis. Additional 3 mm axial sections acquired through the symptomatic hip joint, with coronal and sagittal reformats. COMPARISON: [facility], CR, XR HIP W PEL LT 2V, 11/07/2024, 16:22. FINDINGS: Image quality: Diagnostic Bones: Mildly impacted subcapital left hip fracture is present. No dislocation. The left pubic ring appears intact. There are degenerative femoral acetabular and pubic symphysis changes. Chronic appearing bone fragment is seen adjacent to the left ischium. Partially seen lumbosacral degenerative changes also present Soft tissues: Atherosclerotic calcifications. Partially seen suspected renal cysts. Edema and likely hemorrhage is seen surrounding the left hip joint, extending along the iliacus and psoas muscles. IMPRESSION: Mildly impacted left subcapital hip fracture. Background degenerative changes. Surrounding hematoma and edema, extending along the iliopsoas Dictated by: Gabriel Noriega M.D. on 11/07/2024 at 23:14 Approved by: Gabriel Noriega M.D. on 11/07/2024 at 23:18
[2024-11-08] VITALS (20 sets, daily range): BP systolic 106–145; BP diastolic 49–68; PULSE 64–79; RESP 12–26; TEMP 36.3–37.4; O2SAT 89–100; BMI 22.4
--- NOTE | 2024-11-08 | DI.RAD.S_ITS ---
PROCEDURE: XR HIP W PEL IF DONE LT 2V INDICATIONS: LT HIP SURGERY TECHNIQUE: 2 view(s) of the hip acquired. COMPARISON: [facility], [place], XR HIP W PEL LT 2V, 11/07/2024, 16:22. FINDINGS: Bones: Patient is status post left femoral neck ORIF, with hardware components in expected positions. The hip joint appears congruent. The visualized bony structures appear intact. Soft tissues: No suspicious soft tissue densities. IMPRESSION: Expected post-operative appearance status post left femoral neck ORIF. Dictated by: Drew Escalante M.D. on 11/10/2024 at 0:36 Approved by: Drew Escalante M.D. on 11/10/2024 at 0:37
--- NOTE | 2024-11-08 | DI.RAD.S_ITS ---
PROCEDURE: XR SHOULDER LT MIN 2V INDICATIONS: Left Shoulder pain after a ground level fall. TECHNIQUE: Two views of the shoulder were acquired. COMPARISON: None. FINDINGS: Bones: No displaced fracture. There is end-stage glenohumeral and acromioclavicular osteoarthritis, with joint space narrowing, osteophytosis and subchondral sclerosis. There is superior subluxation of the humerus relative to the glenoid. Soft tissues: No suspicious soft tissue calcifications. IMPRESSION: No displaced fracture. Severe glenohumeral and acromioclavicular osteoarthritis. Sequela of rotator cuff injury. Dictated by: Edgardo Nassar M.D. on 11/08/2024 at 16:02 Approved by: Edgardo Nassar M.D. on 11/08/2024 at 16:03
[2024-11-08] MEDS: SODIUM CHLORIDE 0.9% 1,000 ML 75 ML IV (00:32)
[2024-11-08] MEDS: HYDROMORPHONE 0.5 MG INJ IV ×4 (00:32→23:03)
--- NOTE | 2024-11-08 02:17 | P.HP_ITS ---
History of Present Illness History of Present Illness Chief complaint: fell left arm bleeding, hip pain Narrative: 84 years old male with history of hypertension, lipidemia, CAD, CHF, presents to the ER after ground-level fall tripped on power cord outside of his house. Immediately after that he started complaining of left hip pain laceration of left hand and left elbow. Denies any head injury or loss of consciousness. Denies any chronic falls. In the ER she was found to have mildly impacted left subscapular hip fracture. Orthopedic surgery was consulted and recommended admission for possible surgery and n.p.o. after midnight. Laboratory unremarkable. He was given Zofran and Dilaudid bacitracin ointment. [facility] Medical History (Updated 11/07/24 @ 22:55 by Hayden Ring MD) Bunion of great toe of left foot Callus of foot Social History household members: none Smoking Status: Former smoker Meds Home Medications and Allergies Home Medications Medication Instructions Recorded Confirmed Type atorvastatin 40 mg tablet (Lipitor) 40 mg PO HS ##0 02/27/17 11/08/24 History aspirin 81 mg tablet,delayed 81 mg PO DAILY 07/13/19 11/08/24 History release (Aspir-) losartan 100 mg tablet 100 mg PO DAILY 11/07/24 11/07/24 History hydrochlorothiazide 125 mg PO DAILY 11/08/24 11/08/24 History melatonin 3 mg PO BEDTIME 11/08/24 11/08/24 History metoprolol tartrate 25 mg PO DAILY 11/08/24 11/08/24 History timolol maleate 0.5 % eye drops 1 drp EYE-RIGHT BID 11/08/24 11/08/24 History Allergies Allergy/AdvReac Type Severity Reaction Status Date / Time tetracycline [TETRACYCLINE] AdvReac Mild upset Verified 11/07/24 16:04 stomach Review of Systems Review of Systems ROS: Yes All systems reviewed with the patient and are negative except as otherwise documented Constitutional Constitutional: Reports as per HPI and Reports system reviewed and no additional complaints, except as documented Eyes Eyes: Reports as per HPI and Reports system reviewed and no additional complaints, except as documented ENT Ears, Nose, Mouth, and Throat: Yes as per HPI and Yes system reviewed and no additional complaints, except as documented Cardiovascular Cardiovascular: Reports system reviewed and no additional complaints, except as documented Respiratory Respiratory: Reports system reviewed and no additional complaints, except as documented Gastrointestinal Gastrointestinal: Reports system reviewed and no additional complaints, except as documented Genitourinary Genitourinary: Reports system reviewed and no additional complaints, except as documented Musculoskeletal Musculoskeletal: Reports system reviewed and no additional complaints, except as documented, Reports abnormal gait and Reports numbness Neurologic Neurologic: Reports system reviewed and no additional complaints, except as documented, Reports abnormal gait, Reports confusion and Reports numbness Psychiatric Psychiatric: Reports system reviewed and no additional complaints, except as documented and Reports confusion Exam Vital Signs (past 8 hours): - 11/07/24 18:30 11/07/24 19:00 11/07/24 19:30 Temperature Pulse Rate 66 66 69 Respiratory Rate Blood Pressure Pulse Oximetry 98 97 95 Oxygen Delivery Method Oxygen Flow Rate 11/07/24 20:00 11/07/24 20:17 11/07/24 20:17 Temperature Pulse Rate 71 75 Respiratory Rate 18 Blood Pressure 138/64 Pulse Oximetry 96 99 Oxygen Delivery Method Oxygen Flow Rate 11/07/24 20:18 11/07/24 20:30 11/07/24 20:30 Temperature Pulse Rate 71 Respiratory Rate Blood Pressure 138/64 158/67 H Pulse Oximetry 97 Oxygen Delivery Method Oxygen Flow Rate 11/07/24 21:00 11/07/24 21:00 11/07/24 21:18 Temperature Pulse Rate 74 Respiratory Rate Blood Pressure 134/63 Pulse Oximetry 88 L 96 Oxygen Delivery Method Room Air Nasal Cannula Oxygen Flow Rate 2 11/07/24 21:30 11/07/24 21:30 11/07/24 22:00 Temperature Pulse Rate 74 Respiratory Rate Blood Pressure 138/63 141/66 H Pulse Oximetry 98 Oxygen Delivery Method Nasal Cannula Oxygen Flow Rate 2 11/07/24 22:00 11/07/24 22:30 11/07/24 22:30 Temperature Pulse Rate 82 73 Respiratory Rate Blood Pressure 141/67 H Pulse Oximetry 96 98 Oxygen Delivery Method Nasal Cannula Nasal Cannula Oxygen Flow Rate 2 11/07/24 22:59 11/08/24 00:40 Temperature 98.7 F Pulse Rate 72 Respiratory Rate 26 H Blood Pressure 123/56 L Pulse Oximetry 100 Oxygen Delivery Method Room Air Oxygen Flow Rate 2 Oxygen Delivery Method Room Air Oxygen Flow Rate 2 Const General: cooperative, comfortable and well developed Orientation: alert and oriented x3 HENMT Head: normal to inspection, normocephalic and atraumatic Face and sinus: normal facial exam Mouth: oral mucosae normal and moist mucous membranes Throat: posterior oropharynx normal Eyes General: appearance normal, both eyes and all related structures Pupils: PERRL EOM: EOM intact bilaterally Neck Neck: normal visual inspection and full ROM Chest Chest: normal inspection of the chest Resp Effort & Inspection: normal respiratory effort and able to speak in complete sentences Auscultation: clear to auscultation bilaterally Cardio Palpation: normal PMI Rate: regular rate Rhythm: regular rhythm Heart Sounds: S1 normal and S2 normal GI Inspection: normal to inspection Palpation: soft and no hepatosplenomegaly Auscultation: normal bowel sounds Skin General: no rashes or lesions noted Lesions: no lesions Rashes: no rashes Trauma: no lacerations or abrasions Neuro General: patient alert, patient awake, patient oriented x3 and no focal motor deficits Cranial Nerves: CN's II-XI intact bilaterally Cognition: normal cognition Speech: speech normal Gait: normal gait Motor: muscle tone normal throughout Sensory Exam: no sensory deficits noted Extrem General: full ROM and no calf tenderness Psych Appearance: grossly normal Mental Status: mental status grossly normal Speech and Movement: speech and movement normal Objective Labs 11/07/24 18:36 11/07/24 18:36 Labs: Laboratory Results - last 24 hr 11/07/24 11/07/24 18:36 20:10 WBC 8.4 RBC 4.71 Hgb 15.0 Hct 43.1 MCV 91.6 MCH 31.9 MCHC 34.8 RDW 15.0 H Plt Count 105 L Neut % (Auto) 80.8 H Lymph % (Auto) 10.6 L [place] % (Auto) 6.8 Eos % (Auto) 1.3 L Baso % (Auto) 0.5 Neut # (Auto) 6800 Lymph # (Auto) 900 L [place] # (Auto) 600 Eos # (Auto) 100 Baso # (Auto) 0 PT 11.8 INR 1.0 Sodium 136 L Potassium 4.3 Chloride 101 Carbon Dioxide 30 BUN 20 Creatinine 0.85 Estimated GFR > 60 BUN/Creatinine Ratio 23.5 H Glucose 134 H Calcium 8.8 Total Bilirubin 1.0 AST 22 ALT 21 Alkaline Phosphatase 89 Total Protein 6.3 Albumin 4.0 Globulin 2.3 Albumin/Globulin Ratio 1.7 Urine Color Yellow Urine Appearance Clear Urine pH 6.0 Ur Specific [place] 1.010 Urine Protein Negative Urine Glucose (UA) Negative Urine Ketones Negative Urine Occult Blood Negative Urine Nitrate Negative Urine Bilirubin Negative Urine Urobilinogen 0.2 Ur Leukocyte Esterase Negative Urine RBC None seen Urine WBC None seen Ur Squamous Epith Cells None seen Urine Bacteria None seen Ur Culture Indicated? Cult not indicated Vol Urine Centrifuged 10ml (spun) Assessment & Plan Assessment & Plan narrative: Mildly impacted left subscapular hip fracture after ground-level fall. -IV Fluids -Nothing by mouth for now -Hold aspirin for now -NWB -Orthopedic consult for F/U -Incentive spirometry -Pain medications as needed -Bowel regimen while on narcotics -Fall precaution -PT and OT evaluation on discharge Care provided by Telehealth service using synchronized audio-video technology for this visit. Prior to the discussion the clinician obtained the patient's consent for Telehealth service. Supporting E/M code and modifier 95 for Telemedicine service documented. All requirements are met and documented. Time-Based Coding :: [TOTAL MINUTES] spent with patient and on the chart (including review of chart, obtaining history, exam, reviewing outside data, placing orders, documenting exam and treatment plan, and counseling patient) on [DATE]. Quality VTE Deep Vein Thrombosis/Pulmonary Embolism Present on Admission: No MIPS - Admit I confirm the patient?s Advance Care Plan is present, Code status is documented, Surrogate decision maker is in patient?s record [If Yes, STOP here]: Yes MIPS - Meds 'Current medications' to include all prescriptions, [id number] products, herbals, cannabis/cannabidiol products, and vitamin/mineral/dietary (nutritional) supplements. I have utilized all available resources to obtain, update, or review the patient?s current medications. [If Yes, STOP here]: Yes
--- NOTE | 2024-11-08 07:26 | P.HP_ITS ---
History of Present Illness History of Present Illness Date Patient Seen: 11/08/24 Time Patient Seen: 07:26 Date of Onset of Symptoms: 11/07/24 Chief complaint: fell left arm bleeding, hip pain Narrative: 84 yo M with past medical history of hypertension who is on aspirin presented to the emergency department for a ground level fall. He injured his left hand and his left hip. He was found to have a laceration across the left hand that was repaired in the emergency department. On further investigation of his left hip it was found that he had a minimally displaced left hip fracture. Orthopedics was then consulted. Patient reports he has some ongoing pain in the left hand and also on the left hip. Denies any loss of function. Denies numbness and tingling. Following the fall he was able to get up and walk on it however he had significant pain in that left hip. [facility] Medical History (Updated 11/08/24 @ 07:29 by Lemuel Ojeda MD) Bunion of great toe of left foot Callus of foot Social History household members: none Smoking Status: Former smoker Meds Home Medications and Allergies Home Medications Medication Instructions Recorded Confirmed Type atorvastatin 40 mg tablet (Lipitor) 40 mg PO HS ##0 02/27/17 11/08/24 History aspirin 81 mg tablet,delayed 81 mg PO DAILY 07/13/19 11/08/24 History release (Aspir-) losartan 100 mg tablet 100 mg PO DAILY 11/07/24 11/07/24 History hydrochlorothiazide 125 mg PO DAILY 11/08/24 11/08/24 History melatonin 3 mg PO BEDTIME 11/08/24 11/08/24 History metoprolol tartrate 25 mg PO DAILY 11/08/24 11/08/24 History timolol maleate 0.5 % eye drops 1 drp EYE-RIGHT BID 11/08/24 11/08/24 History Allergies Allergy/AdvReac Type Severity Reaction Status Date / Time tetracycline [TETRACYCLINE] AdvReac Mild upset Verified 11/07/24 16:04 stomach Exam Vital Signs (past 8 hours): - 11/08/24 00:40 11/08/24 06:10 11/08/24 06:22 Temperature 98.7 F 97.6 F Pulse Rate 72 71 Respiratory Rate 26 H 20 Blood Pressure 123/56 L 126/55 L Pulse Oximetry 100 97 96 Oxygen Flow Rate 2 2 0 Oxygen Delivery Method Room Air Oxygen Flow Rate 0 Narrative Exam Narrative: LEFT Hip: Inspection: No erythema, swelling, bruising, atrophy. ROM deferred due to known hip fracture Neurovascular exam: 5/5 q/h/ta/gc/ehl; SILT s/s/sp/dp/t, 2+ dp Imaging: Radiographs of the left hip on November 07, 2024: Demonstrate a minimally displaced valgus impacted femoral neck fracture. CT scan of the left hip on November 07, 2024: Confirm the minimally displaced left hip femoral neck fracture. Objective Labs 11/07/24 18:36 11/07/24 18:36 Labs: Laboratory Results - last 24 hr 11/07/24 11/07/24 18:36 20:10 WBC 8.4 RBC 4.71 Hgb 15.0 Hct 43.1 MCV 91.6 MCH 31.9 MCHC 34.8 RDW 15.0 H Plt Count 105 L Neut % (Auto) 80.8 H Lymph % (Auto) 10.6 L [place] % (Auto) 6.8 Eos % (Auto) 1.3 L Baso % (Auto) 0.5 Neut # (Auto) 6800 Lymph # (Auto) 900 L [place] # (Auto) 600 Eos # (Auto) 100 Baso # (Auto) 0 PT 11.8 INR 1.0 Sodium 136 L Potassium 4.3 Chloride 101 Carbon Dioxide 30 BUN 20 Creatinine 0.85 Estimated GFR > 60 BUN/Creatinine Ratio 23.5 H Glucose 134 H Calcium 8.8 Total Bilirubin 1.0 AST 22 ALT 21 Alkaline Phosphatase 89 Total Protein 6.3 Albumin 4.0 Globulin 2.3 Albumin/Globulin Ratio 1.7 Urine Color Yellow Urine Appearance Clear Urine pH 6.0 Ur Specific [place] 1.010 Urine Protein Negative Urine Glucose (UA) Negative Urine Ketones Negative Urine Occult Blood Negative Urine Nitrate Negative Urine Bilirubin Negative Urine Urobilinogen 0.2 Ur Leukocyte Esterase Negative Urine RBC None seen Urine WBC None seen Ur Squamous Epith Cells None seen Urine Bacteria None seen Ur Culture Indicated? Cult not indicated Vol Urine Centrifuged 10ml (spun) Assessment & Plan Assessment and plan (1) Fracture of femoral neck, left, closed: Qualifiers: Encounter type: initial encounter Qualified Code(s): S72.002A - Fracture of unspecified part of neck of left femur, initial encounter for closed fracture Status: Acute Assessment & Plan narrative: 84 yo male with history of hypertension presents with a left hip fracture. We had a conversation about nonoperative versus operative management. I explained to return him back to his previous level of function I would recommend operative fixation of the left hip. The risks, benefits and alternatives of the procedure were discussed with the patient to include bleeding, infection, damage to surrounding structures, ongoing pain, malunion, nonunion, need for additional surgeries and anesthesia risks such as heart attack, stroke and . The patient understood these risks and 1 move forward with the procedure. Consent was completed this morning. He was consented for operative fixation of the left hip. Plan: Nonweightbearing left lower extremity Minimize range motion of the left hip NPO Operative fixation of the left hip this afternoon. Lemuel Ojeda MD Ortho Time-Based Coding :: [TOTAL MINUTES] spent with patient and on the chart (including review of chart, obtaining history, exam, reviewing outside data, placing orders, documenting exam and treatment plan, and counseling patient) on [DATE]. Quality VTE Deep Vein Thrombosis/Pulmonary Embolism Present on Admission: No [facility] [employer]EE P[employer] Tender Document charge(s): Yes
--- NOTE | 2024-11-08 11:02 | PC.NURSE ---
Addendum entered by Aspen Mcdonald R.N. 11/08/24 18:14: Patient is back from surgery his is doing well. Tolerating a general diet, and visiting with his children. He has an aquacel to his l.hip and 3 pins were placed. Denies pain. Original Note: Patient just given iv dilaudid 0.5mg for complaints of 7/10 pain to his l.hip. He is lying supine and using the urinal at bedside. He has been NPO since last night. He is visiting with his daughter now and waiting to go to surgery.
--- NOTE | 2024-11-08 12:34 | EKG_ITS ---
[address] [address] Test Date: 2024-11-08 Pat Name: Kenney Liriano Department: Room: 221 Gender: Male Cook Candy: : 1940 Requested By: Order Number: [id number] Reading MD: Joseph Hernandez Measurements Intervals [place] Rate: 75 P: MT: QRS: 77 QRSD: 158 T: -44 QT: 416 QTc: 464 Interpretive Statements Ventricular-paced rhythm Electronically Signed On 11-11-2024 17:09:47 PDT by Joseph Hernandez
[2024-11-08] MEDS: LACTATED RINGERS 1,000 ML 42 ML IV (13:45)
[2024-11-08] MEDS: CEFAZOLIN 2 GM/100 ML PREMIX 100 ML IV ×2 (14:45→23:04)
[2024-11-08] MEDS: ACETAMINOPHEN IV 1,000 MG/100 ML VIAL 400 MG IV (14:50)
[2024-11-08] MEDS: TRANEXAMIC ACID 1,000 MG VIAL 2000 MG INJ ×2 (14:50→16:15)
--- NOTE | 2024-11-08 15:08 | SUR.OPER ---
Supine on padded [place] table with bilateral legs secured in padded positioning boots and suspended in positioning spars, operative leg in traction per surgeon. Head on one pillow. Arm on non-operative side secured on padded armboard <90 degrees abduction. Arm on operative side padded and resting across chest then secured with tape over sheet. Padded perineal post in place per surgeon.
[2024-11-08] MEDS: BUPIVACAINE 0.25% (PF) VIAL 30 ML INJ (15:17)
--- NOTE | 2024-11-08 15:29 | CM.DANOTE ---
Patient is an 84 yo male who was admitted INPT Status on 11/07/24 for GLF with arm laceration and L hip Fx. Pt has [facility] and [facility] [employer] for insurance and his PCP is John Schultz. EMR was reviewed. Per MD, pt with fall and hip fx and laceration on hand sutured in ED and to consult Ortho. Per Ortho, recommending surgery today for repair. Pt off floor in surgery and SW met bedside with pt's adult Dtr Annabel and adult son Jefe and explained role. They confirm pt lives at home alone on [facility] and is very independent at baseline and completes his own ADLs. Pt drives and does his own grocery shopping and has a cane and walking stick that he uses for longer distances. Pt fiercely independent and no recent hx of HH or SNF. No formal POA pwk completed but Dtr Annabel and son Jefe only children of patient and patient is not . SW explained process of working with PT/OT post surgery likely tomorrow Tu to determine discharge planning needs of SNF vs home with family assist and HH. Family confirms that pt's preference will likely be home and Dtr lives 4 minutes away and both Annabel and Jefe confirm they could stay with pt and assist at d/c if needed. Plan: SW to follow for PT/OT in the AM as pt off the floor in surgery this afternoon to determine SNF vs HH at d/c. KAYCEE Zhao Discharge Planning/Care Management Advanced directive, confirm from FAMILY Start: 11/08/24 00:54 Freq: Q24H Status: Active Protocol: Document 11/08/24 00:54 AT (Rec: 11/08/24 01:07 AT [id number]) Advance Directive, confirm on record Time 01:06 Person contacted self Copy received No CM Discharge Assessment Start: 11/07/24 22:59 Freq: Status: Active Protocol: Document 11/08/24 15:24 BF (Rec: 11/08/24 15:29 BF [id number]) Discharge Planning Assessment Assigned Oracle Technical Developer KAYCEE Silverio DPOA/Assigned Designee Name informally son and Dtr Contact Information [phone] Advance Directives? Yes Advance Directives on File No History Provided By Patient,Family Member,Medical Record Has Patient been admitted in last 30 No days? Prior Living Arrangements House Household Members none Type of transporation used prior to Drives own vehicle admit Independent with ADL's Yes Is patient alert and oriented? Yes Caregiver for Another No DME Already Rented / Owned Cane Comment Walking stick and cane at home Patient/Family Preference Alf Facility,Home with Home Health Comment Pending PT/OT post surgery to determine SNF vs HH Barriers to Discharge No Discharge Plan Home with Home Health Transportation Arrangement Dtr and son have been bedside and can transport if safe for home Additional Comment Pending PT/OT eval post surg Whiteboard Updated in Patient Room with Yes name and ext. # of Oracle Technical Developer Review Status In Process Please Provide Date Initial DC 11/08/24 Assessment Was Performed Next Review Type Continued Stay Review
[2024-11-08] MEDS: HYDROMORPHONE 1 MG INJ IV ×2 (17:05→17:10)
--- NOTE | 2024-11-08 18:01 | PM.HP.1 ---
History of Present Illness History of Present Illness Date Patient Seen: 11/08/24 Chief complaint: fell left arm bleeding, hip pain Narrative: Chief complaint: Ground level fall with left hip pain due to fracture History of present illness: 84 years old male with history of hypertension, lipidemia, CAD, CHF, presents to the ER after ground-level fall tripped on power cord outside of his house. Immediately after that he started complaining of left hip pain laceration of left hand and left elbow. Denies any head injury or loss of consciousness. Denies any chronic falls. In the ER she was found to have mildly impacted left subscapular hip fracture. Orthopedic surgery was consulted and recommended admission for possible surgery and n.p.o. after midnight. Laboratory unremarkable. Past medical history, surgical history family history and social history see bottom of the page Review of systems: No fainting spells dizziness lightheadedness No fever or chills weight loss weight gain No chest pain palpitations or shortness a breath or wheezing Nausea vomiting diarrhea constipation No urinary symptoms No paresthesia paresis Physical exam: No acute distress alert and oriented HEENT unremarkable Neck no JVD Heart rate and rhythm regular Lungs clear Abdomen nondistended bowel sounds present Extremities no edema Neuro alert nonfocal Objective laboratory and x-ray findings the bottom of the page Assessment and plan: Subcapital left hip fracture impacted -IV Fluids -Nothing by mouth for now -Hold aspirin for now -NWB -Orthopedic consult for F/U -Incentive spirometry -Pain medications as needed -Bowel regimen while on narcotics -Fall precaution -PT and OT evaluation on discharge Time-Based Coding :: 35 minutes spent with patient and on the chart (including review of chart, obtaining history, exam, reviewing outside data, placing orders, documenting exam and treatment plan, and counseling patient). MIPS - Admit I confirm the patient?s Advance Care Plan is present, Code status is documented, Surrogate decision maker is in patient?s record [If Yes, STOP here]: Yes MIPS - Meds 'Current medications' to include all prescriptions, [id number] products, herbals, cannabis/cannabidiol products, and vitamin/mineral/dietary (nutritional) supplements. I have utilized all available resources to obtain, update, or review the patient?s current medications. [facility] Medical History (Updated 11/08/24 @ 07:29 by Lemuel Ojeda MD) Bunion of great toe of left foot Callus of foot Social History household members: none Smoking Status: Former smoker Meds Home Medications and Allergies Home Medications Medication Instructions Recorded Confirmed Type atorvastatin 40 mg tablet (Lipitor) 40 mg PO HS ##0 02/27/17 11/08/24 History aspirin 81 mg tablet,delayed 81 mg PO DAILY 07/13/19 11/08/24 History release (Aspir-) losartan 100 mg tablet 100 mg PO DAILY 11/07/24 11/07/24 History hydrochlorothiazide 12.5 mg tablet 12.5 mg PO DAILY 11/08/24 11/08/24 History melatonin 3 mg PO BEDTIME 11/08/24 11/08/24 History metoprolol tartrate 25 mg PO DAILY 11/08/24 11/08/24 History metoprolol tartrate 25 mg tablet 25 mg PO DAILY 11/08/24 11/08/24 History timolol maleate 0.5 % eye drops 1 drp EYE-RIGHT BID 11/08/24 11/08/24 History Allergies Allergy/AdvReac Type Severity Reaction Status Date / Time tetracycline [TETRACYCLINE] AdvReac Mild upset Verified 11/08/24 13:52 stomach Exam Vital Signs (past 8 hours): - 11/08/24 13:00 11/08/24 13:58 11/08/24 14:00 Temperature 99.4 F 98.8 F Pulse Rate 75 70 Respiratory Rate 16 20 Blood Pressure 114/60 131/68 Pulse Oximetry 90 L 89 L 96 Oxygen Delivery Method Room Air Nasal Cannula Oxygen Flow Rate 0 2 11/08/24 16:40 11/08/24 16:45 11/08/24 16:50 Temperature 97.4 F L Pulse Rate 64 69 68 Respiratory Rate 15 17 13 Blood Pressure 136/65 145/62 H 139/60 Pulse Oximetry 94 95 94 Oxygen Delivery Method Nasal Cannula Nasal Cannula Nasal Cannula Oxygen Flow Rate 2 2 2 11/08/24 16:55 11/08/24 17:00 11/08/24 17:05 Temperature Pulse Rate 69 79 79 Respiratory Rate 14 18 16 Blood Pressure 130/63 125/63 139/64 Pulse Oximetry 95 93 93 Oxygen Delivery Method Nasal Cannula Nasal Cannula Nasal Cannula Oxygen Flow Rate 2 2 2 11/08/24 17:15 11/08/24 17:25 11/08/24 17:30 Temperature 98.6 F Pulse Rate 74 71 70 Respiratory Rate 14 12 21 Blood Pressure 141/60 H 120/59 L 133/52 L Pulse Oximetry 95 94 97 Oxygen Delivery Method Nasal Cannula Nasal Cannula Oxygen Flow Rate 2 2 Oxygen Delivery Method Nasal Cannula Oxygen Flow Rate 2 Objective Labs 11/07/24 18:36 11/07/24 18:36 Labs: Laboratory Results - last 24 hr 11/07/24 11/07/24 18:36 20:10 WBC 8.4 RBC 4.71 Hgb 15.0 Hct 43.1 MCV 91.6 MCH 31.9 MCHC 34.8 RDW 15.0 H Plt Count 105 L Neut % (Auto) 80.8 H Lymph % (Auto) 10.6 L [place] % (Auto) 6.8 Eos % (Auto) 1.3 L Baso % (Auto) 0.5 Neut # (Auto) 6800 Lymph # (Auto) 900 L [place] # (Auto) 600 Eos # (Auto) 100 Baso # (Auto) 0 PT 11.8 INR 1.0 Sodium 136 L Potassium 4.3 Chloride 101 Carbon Dioxide 30 BUN 20 Creatinine 0.85 Estimated GFR > 60 BUN/Creatinine Ratio 23.5 H Glucose 134 H Calcium 8.8 Total Bilirubin 1.0 AST 22 ALT 21 Alkaline Phosphatase 89 Total Protein 6.3 Albumin 4.0 Globulin 2.3 Albumin/Globulin Ratio 1.7 Urine Color Yellow Urine Appearance Clear Urine pH 6.0 Ur Specific [place] 1.010 Urine Protein Negative Urine Glucose (UA) Negative Urine Ketones Negative Urine Occult Blood Negative Urine Nitrate Negative Urine Bilirubin Negative Urine Urobilinogen 0.2 Ur Leukocyte Esterase Negative Urine RBC None seen Urine WBC None seen Ur Squamous Epith Cells None seen Urine Bacteria None seen Ur Culture Indicated? Cult not indicated Vol Urine Centrifuged 10ml (spun) Assessment & Plan Time-Based Coding :: [TOTAL MINUTES] spent with patient and on the chart (including review of chart, obtaining history, exam, reviewing outside data, placing orders, documenting exam and treatment plan, and counseling patient) on [DATE]. Quality VTE Deep Vein Thrombosis/Pulmonary Embolism Present on Admission: No
--- NOTE | 2024-11-08 20:31 | P.OP_ITS ---
Operative Date/Time/Diagnoses Date of procedure: 11/08/24 Time of procedure: 15:00 Pre-op diagnosis: Left Hip Femoral Neck Fractrue Post-op diagnosis: same Procedure & Clinicians Procedure: Closed Reduction and pinning of the left femoral neck fracture Same procedure as scheduled: Yes Surgeon: Lemuel Ojeda Stock Handler Floorperson: Alba Falk Click Yes if Unassisted: No Anesthesia Type: General Operative Notes Findings: Stable femoral neck fracture Closure Type: primary Estimated Blood Loss (mL): 100 Procedure in detail: Op Note Date of Procedure: 11/08/24 Pre-Op Diagnosis: LEFT Femoral Neck Fracture Post-Op Diagnosis: LEFT Femoral Neck Fracture Procedure: Left Hip Closed reduction and cannulated screw fixation of the femoral neck fracture Surgeon: Lemuel Ojeda MD Co-Surgeon: Alba Falk DO Anesthesia Type: General EBL: 50 cc Urine Output : N/A Specimens Removed: None Complications: None Implants/Grafts: 3 partially threaded cannulated screws Drains: No lines, drains, or airways are recorded for this episode. Findings: Stable left hip femoral hip fracture Narrative: The patient was taken to the OR and administered anesthetic and preoperative antibiotics. They were placed on the fracture table with the LEFT leg in traction boot. SCD device placed on the nonoperative leg and placed with the hip extended below the operative leg. Using traction and appropriate rotation hip was reduced to near anatomic position on fluoroscopic views. Standard prep and drape was done. A standard timeout was performed. A K wire was laid over the anterior hip and fluoroscopy was utilized to determine the location of the lateral incision. A 5 inch incision was made through the skin in line with the planned trajectory of guidewires over the center of the lateral proximal femur. IT band was incised sharply. Initially we attempted to use a new system that incoporated 3 cannulated screws and a lateral plate. However once the place was appropirately placed it was decided that the predetermined screw trajectories were two wide compared to the patients anatomy. So this system was abondoned and we transitioned to 3 cannulated screws. 3 guidewires for cannulated screws were then placed taking care to stay above the lesser trochanter. The first was placed along the inferior neck. Two additional guidewires were placed superiorly along the periphery of the neck. Appropriate positions were confirmed on fluoroscopic AP and lateral views. The wires were measured. The cortex was drilled for each screw and screws placed. Final x-rays confirmed satisfactory position of the implants and maintenance of fracture position. The wound was irrigated and closed with 2-0 Vicryl in the dermis and 3-0 Nylon for the skin. A sterile dressing was applied. Patient was then transferred to recovery room bed in stable condition. Plan: Xrays in PACU. Weight Bearing as tolerated. DVT prophylaxis. Physical therapy. Follow-up in 2 weeks for wound check. Lemuel Ojeda MD Complications: none Post-operative Condition: stable Disposition: PACU
[2024-11-08] MEDS: ASPIRIN EC 81 MG TABLET PO (21:11)
[2024-11-08] MEDS: SENNOSIDES 8.6 MG TABLET 17.2 MG PO (21:11)
[2024-11-08] MEDS: TIMOLOL 0.5% OPHTH 1 DROPS EYE-RIGHT (21:11)
[2024-11-08] MEDS: DOCUSATE 100 MG CAPSULE PO (21:11)
[2024-11-08] MEDS: ATORVASTATIN 20 MG TABLET 40 MG PO (21:11)
[2024-11-08] MEDS: LACTATED RINGERS 1,000 ML 100 ML IV (21:22)
[2024-11-08] MEDS: MELATONIN 3 MG TABLET PO (23:03)
[2024-11-08] MEDS: ACETAMINOPHEN 325 MG TABLET 650 MG PO (23:04)
[2024-11-09] VITALS: BP 110/57; PULSE 64; RESP 16; TEMP 36.5; O2SAT 98
[2024-11-09] MEDS: LIDOCAINE 2% (GLYDO) 6 ML GEL TOP (02:35)
[2024-11-09 05:11] VITALS: BP 132/56; PULSE 75; RESP 18; TEMP 36.4; O2SAT 98
[2024-11-09 06:30] LABS: Add Manual Diff / Slide Review NO; Basophils Absolute Auto 0 /uL (0-100); Basophils Percent Auto 0.4 % (0-2); Eosinophils Absolute Auto 100 /uL (0-450); Eosinophils Percent Auto 0.8 % (2-4); Hematocrit 36.7 % (41-53); Hemoglobin 12.7 g/dL (13.5-17.5); Lymphocytes Absolute Auto 600 /uL (1100-4500); Lymphocytes Percent Auto 7.8 % (25-40); Mean Corpuscular HGB Conc 34.5 % (30-36); Mean Corpuscular Hemoglobin 32.2 PG (26-34); Mean Corpuscular Volume 93.3 fL (80-100); Monocytes Absolute Auto 800 /uL (0-900); Monocytes Percent Auto 9.2 % (3-14); Neutrophils Absolute Auto 6700 /uL (1500-7000); Neutrophils Percent Auto 81.8 % (50-75); Platelet Count 92 X10^3/uL (150-400); Red Blood Cell Count 3.93 X10^6/uL (4.5-5.9); Red Cell Distribution Width 15.1 % (11.6-14.8); White Blood Cell Count 8.2 X10^3/uL (4.5-11.0)
[2024-11-09 06:32] LABS: BUN Creatinine Ratio 25.8 (6-22); Blood Urea Nitrogen 24 mg/dL (9-20); Calcium 7.9 mg/dL (8.4-10.2); Carbon Dioxide 25 mmol/L (22-32); Chloride 101 mmol/L (98-107); Estimated Glomerular Filt Rate > 60 mL/min (>60); Glucose 201 mg/dL (70-99); HEMOLYSIS < 15 (0-50); Potassium 4.2 mmol/L (3.4-5.1); Sodium 132 mmol/L (137-145)
[2024-11-09] MEDS: CEFAZOLIN 2 GM/100 ML PREMIX 100 ML IV (07:09)
[2024-11-09 08:00] VITALS: BP 128/54; PULSE 75; RESP 18; TEMP 36.8; O2SAT 95
[2024-11-09] MEDS: DOCUSATE 100 MG CAPSULE PO ×2 (10:33→22:21)
[2024-11-09] MEDS: ACETAMINOPHEN 325 MG TABLET 650 MG PO (10:33)
[2024-11-09] MEDS: ASPIRIN EC 81 MG TABLET PO ×2 (10:34→22:21)
[2024-11-09] MEDS: TIMOLOL 0.5% OPHTH 1 DROPS EYE-RIGHT ×2 (10:36→22:21)
--- NOTE | 2024-11-09 11:05 | PT.IIE ---
Current Diagnoses Fracture of unspecified part of neck of left femur, initial encounter for closed fracture (11/07/24) Unspecified intracapsular fracture of left femur, initial encounter for closed fracture (11/07/24) Surgery Performed Operation Date: 11/08/24 12:00 Actual Procedures p Hip Pinning(Left) - Lemuel Ojeda MD Medical History (Last Reviewed 01/05/20 @ 10:00 by John Campos MD) Bunion of great toe of left foot Callus of foot Physical Therapy Inpatient Evaluation/Re-Eval M1 PT/OT-IP Prior Functional Status Start: 11/09/24 14:11 Freq: NEEDED Status: Active Protocol: Document 11/09/24 11:05 AB (Rec: 11/09/24 14:23 AB [id number]) Medical Review Prior Functional Status Medical History Yes Reviewed Communication able to make needs known Mobility and Gait pt stated that he was modified independent with all mobilities and ambulation without AD but uses a SPC for outdoor long distance ambulation; uses a walking stick for outdoor short distance ambulation Activities of Daily per OT note: Pt has difficulty with LB dressing needs Living and IADL's due to history of rotator cuff tears. Social History Household Members none Living Arrangements House Number of Floors ( One Floor Floors) Number of Stairs To 5 steps R rail ascending to enter the house Enter/Railing? Home Environment Standard Height Toilet,Tub/Shower Home Equipment Straight Cane,Shower Seat without Backrest,Hand Held Shower,Grab Bars Near Toilet,Grab Bars In Shower Additional Social daughter or son will stay and assist pt at home History Comment M2 PT-IP Current Condition Start: 11/09/24 14:11 Freq: NEEDED Status: Active Protocol: Document 11/09/24 11:05 AB (Rec: 11/09/24 14:23 AB [id number]) Physical Therapy Current Condition Current Condition Evaluation Date 11/09/24 Treatment Diagnosis L femoral neck fx s/p L ORIF; difficulty in walking Onset Date 11/07/24 M3 PT-IP Subjective Start: 11/09/24 14:11 Freq: NEEDED Status: Active Protocol: Document 11/09/24 11:05 AB (Rec: 11/09/24 14:23 AB [id number]) Subjective Physical Therapy Visit Type Type Initial Evaluation Visit Start Time 11:05 Visit Stop Time 12:10 Number of GEOGRAPHY TEACHER Visits 0 Physical Therapy Visit Comments Patient Comments agreeable to do PT Therapy Pain Assessment Pain When Pain Assessed At Rest Pain Present Pain Present Pain Reported Location Left hip Intensity 2 Scale Used increases to 5-6/10 with mobility Pain Behaviors Facial Grimacing,Guarding,Holding Area,Wincing Pain Management Apply Cold,Distraction,Modification of Treatment,Re- Techniques positioning,Timing of Activity with Medications M4 PT-IP Mobility and Gait Start: 11/09/24 14:11 Freq: NEEDED Status: Active Protocol: Document 11/09/24 11:05 AB (Rec: 11/09/24 14:23 AB [id number]) PT-Bed Mobility Assessment Supine to Sit Supine to Sit Maximum Assistance PT-Transfer Assessment Sit to and From Stand Sit to and from Maximum Assistance,2 Person Assistance,Use of Upper Stand Extremities Equipment Transfer Assistive Gait Belt,Large Based Quad Cane Device Orthotic/Prosthetic No Devices or Brace: Transfers Transfer Destination Chair Transfer Technique ambulated Transfer Ability Level of Assist Maximum Assistance,2 Person Assistance,Use of Upper Extremities Comments Mobility Comments pt in bed and daughter in room. obtained PLOF and home setup. O2 sat with 2L/min O2: 96% O2 sat at RA: 90%. post-op folder provided to pt. pt completed supine to sit max A and max cues. max A for scooting to EOB. CGA to min A for sitting balance on EOB. sit to stand max A x 2 and max cues. ambulated ~ 6 ft using FWW max A x 2 and max cues with (+) L knee buckling requiring max A to stabilize. pt sat on chair. positioned pt on the chair. Left pt with OT. informed pt and daughter regarding SNF rehab recommendation at this time. stated that they will think about it. Gait Assessment Gait Gait Assistance Maximum Assistance,2 Person Assist Required: Distance (Feet) 6 Able to Maintain Yes Weight Bearing Status During Gait Assistive Devices Assistive Device Gait Belt,Front Wheeled Walker Orthotic/Prosthetic No Devices or Brace: Gait Deviations General Gait Pattern Decreased Stride Length,Decreased Feet Clearance,Step- to Gait Factors Limiting Gait Function Factors Limiting Decreased Activity Tolerance,Decreased Strength, Gait Function Difficulty Following Directions,Limited Range of Motion ,Pain,Poor Balance,Poor Safety Awareness,Respiratory Distress PT-Balance Assessment Sitting Balance and Reactions Static Sitting Fair Balance Ability Dynamic Sitting Fair Balance Ability Standing Balance and Reactions Static Standing Poor Balance Ability Dynamic Standing Poor Balance Ability Device Used FWW M5 PT-IP Objective Assessments Start: 11/09/24 14:11 Freq: NEEDED Status: Active Protocol: Document 11/09/24 11:05 AB (Rec: 11/09/24 14:23 AB [id number]) Orientation Orientation/Cognition Level of Alertness Alert Orientation Name,Place,Situation Language Function Hard of Hearing Ability Safety Awareness Decreased Safety Awareness Memory Description Short Term Impaired Gross Range of Motion Lower Extremity ROM Assessment Within Functional Limits Strength Lower Extremity Strength Assessment Left Impaired Hip 3-/5 Knee 3-/5 Coordination Assessment Gross Coordination Gross Coordination WNL Sensation Assessment Sensation Gross Sensation WNL Muscle Tone Muscle Tone WNL Yes M6 PT-IP Treatment Start: 11/09/24 14:11 Freq: NEEDED Status: Active Protocol: Document 11/09/24 11:05 AB (Rec: 11/09/24 14:23 AB [id number]) Physical Therapy Treatment Exercises Exercises Heel Slides Education Education Provided Precautions,Weight Bearing Status,Post-Op Packet,Safety M7 PT-IP Assessment and Plan Start: 11/09/24 14:11 Freq: NEEDED Status: Active Protocol: Document 11/09/24 11:05 AB (Rec: 11/09/24 14:23 AB [id number]) PT Summary Assessment and Plan Potential Rehabilitation Fair Potential Status of Condition Evolving at Evaluation Summary Impairments Pain,ROM,Strength,Balance,Coordination,Sensation,Tone, Cognition,Bed Mobility,Transfers,Gait,Activity Tolerance Assessment Summary pt is an 84 y/o M who had a fall and sustain a L femoral neck fx and underwent L hip ORIF POD 1. pt is WBAT on LLE. pt requiring max A for bed mobility and max A x 2 for transfers and ambulation using FWW. pt with (+) L knee buckling requiring max A to stabilize. pt will require 24/7 assist max A x 2 at this time and will benefit from SNF rehab. will continue to assess progress. Goals Bed Mobility Goal Minimal Assistance Transfer Goal Minimal Assistance,Front Wheeled Walker Gait Goal Minimal Assistance,Front Wheel Walker Gait Distance 50 Other Goals improve bed mobility, transfers, ambulation using FWW CGA ~ 100 ft up/down 5 steps R rail SBA Days to Meet Goals 10 Frequency of Treatment Other frequency 1-2x/day Treatment Plan Physical Therapy Bed Mobility Training,Transfer Training,Gait Training, Treatment Plan Therapeutic Exercise,Balance Retraining,Post Op Education,Discharge Planning,Hot or Cold Pack, Neuromuscular Re-ed,Coordination Retraining,Manual Therapy Precautions Brace L wrist support: WBAT Weight Bearing Status Weight Bearing Weight Bear as Tolerated Status Allowed Weight LLE WBAT Bearing Amount ( enter % or #) (%) Recommendations To Nursing Amount of Assist 2 Person Assist Needed Discharge Recommendations PT Discharge SNF Rehab Recommendations Transportation Needs Wheelchair/Cabulance at Discharge - PT assist 2
[2024-11-09 12:00] VITALS: BP 139/65; PULSE 77; RESP 20; TEMP 36.7; O2SAT 97
--- NOTE | 2024-11-09 12:07 | OT.IP.EVAL ---
Current Diagnoses Fracture of unspecified part of neck of left femur, initial encounter for closed fracture (11/07/24) Unspecified intracapsular fracture of left femur, initial encounter for closed fracture (11/07/24) Surgery Performed Operation Date: 11/08/24 12:00 Actual Procedures p Hip Pinning(Left) - Lemuel Ojeda MD Past Medical History (Last Reviewed 01/05/20 @ 10:00 by John Campos MD) Bunion of great toe of left foot Callus of foot Occupational Therapy Inpatient Evaluation/Re-Eval M1 PT/OT-IP Prior Functional Status Start: 11/09/24 12:42 Freq: Status: Active Protocol: Document 11/09/24 12:43 [facility] (Rec: 11/09/24 13:03 [facility] Desktop) Medical Review Prior Functional Status Communication I Mobility and Gait I with no device inside, SPC for long distances and outside. Activities of Daily Pt has difficulty with LB dressing needs due to history Living and IADL's of rotator cuff tears. Social History Household Members none Living Arrangements House Home Environment Standard Height Toilet,Tub/Shower Home Equipment Shower Seat with Backrest,Hand Held Shower,Grab Bars In Shower Additional Social Pt has supportive daughter and son. History Comment M2 OT-IP Current Condition Start: 11/09/24 12:42 Freq: Status: Active Protocol: Document 11/09/24 12:43 [facility] (Rec: 11/09/24 13:03 [facility] Desktop) Occupational Therapy Current Condition Current Condition Evaluation Date 11/09/24 Treatment Diagnosis Left hip femoral neck fracture, lacerated hand/elbow Diagnosis Onset Date 11/07/24 Weight Bearing Status Weight Bearing Weight Bear as Tolerated Status Allowed Weight Surgeon came in to clarify that his left arm and left Bearing Amount ( LE are WBAT. enter % or #) (%) M3 OT- IP Subjective and Pain Start: 11/09/24 12:42 Freq: Status: Active Protocol: Document 11/09/24 12:43 [facility] (Rec: 11/09/24 13:03 [facility] Desktop) OT- Subjective Occupational Therapy Visit Type Type Initial Evaluation Visit Start Time 11:35 Visit Stop Time 12:07 Occupational Therapy Visit Comments Patient Comments Pt agreed to get up. Pt's daughter and PT present for Ot eval. Patient/Caregiver To get better. Goals OT Pain Assessment Pain When Pain Assessed During Mobility Pain Present Pain Present Pain Reported Location Left hip Intensity 5 Scale Used Numeric (0 - 10) M4 OT- IP ADL's Start: 11/09/24 12:42 Freq: Status: Active Protocol: Document 11/09/24 12:43 [facility] (Rec: 11/09/24 13:03 [facility] Desktop) OT TJY-Nppw-Mplxyae General Evaluation Self-Feeding Ability Standby Assistance Areas Needing Opening Containers Assistance Comments OT Self-Feeding Assist for set-up Comments OT ADL-Grooming General Evaluation Grooming Ability Standby Assistance Comments OT Grooming Comments Set-up assist. OT ADL-Oral Care General Eval Oral Care Ability Minimal Assistance Areas of Assistance Managing Dentures Comments Oral Care Comments Assist to rinse out his dentures at the sink. Pt able to brush his teeth while seated after set-up. OT ADL-Dressing General Eval Lower Body Dressing Maximum Assistance Ability Comments OT Dressing Comments Able to show pt LB dressing equipment and to practice tomorrow. Best to dress his LLE first and take out last . OT ADL-Toileting Comments OT Toileting Pt will benefit from BSC if going home. Comments OT ADL-Bathing Bathing Type Bathing Type Sponge Bath General Evaluation Bathing Ability Maximal Assistance Comments OT Bathing Comments Pt will benefit from sponge off initially or getting a tub bench. Surgeon states not to immerge his wound for one month. Pt needing assist to help wash his armpits and back when gown was changed out. Pt able to wash his face,arms, and chest. M5 OT- IP IADL's Start: 11/09/24 12:42 Freq: Status: Active Protocol: Document 11/09/24 12:43 [facility] (Rec: 11/09/24 13:03 [facility] Desktop) OT-Instrumental Activities of Daily Living Home Safety Awareness Home Safety Comments Pt is aware at this time will not be able to care for himself. Meal Preparation Meal Preparation Pt will need assist. 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 Comments M6 OT- IP Functional Cognition Start: 11/09/24 12:42 Freq: Status: Active Protocol: Document 11/09/24 12:43 [facility] (Rec: 11/09/24 13:03 [facility] Desktop) Cognitive Factors Limiting Selfcare Function Cognitive Ability Level of Alertness Alert Patient Orientation Name,Place,Situation Attention Span Capable of Focused Attention Ability Ability to Follow Able to Follow One Step Commands Commands Cognitive Comments Cognitive Assessment Pt able to follow commands for ADL and mobility needs. Comments Pt is [place], has hearing aids but that they do not fit him per pt. OT- Vision and Hearing OT- Hearing Assessment OT- Hearing Hearing Impaired Assessment OT- Vision Assessment Visual Acuity Glasses All The Time Visual Attentiveness WFL Occular Pursuits WFL M7 OT- IP Mobility and Balance Start: 11/09/24 12:42 Freq: Status: Active Protocol: Document 11/09/24 12:43 [facility] (Rec: 11/09/24 13:03 [facility] Desktop) OT- Bed Mobility Assessment Supine to Sit Supine to Sit Assist Maximum Assistance,1 Person Assistance OT-Transfer Assessment Sit to and From Stand Sit to and from Maximum Assistance,2 Person Assistance Stand Transfers Transfer Ability Maximum Assistance,2 Person Assistance Technique Transfer Destination Bed,Chair Transfer Technique Stand Step Pivot Devices Transfer Assistive Gait Belt,Front Wheeled Walker Devices Comments Mobility Comments MAX AX 2 to stand to the fww. Assist to prevent LLE from buckling, assist with fww and for his balance able to take a few steps to the recliner rolled closer to him as pt tiring quickly. Pt currently on 2.5L of O2 and at 97% after getting to the recliner. Educated pt to do exercises in the recliner to strengthen his LLE. OT- Balance Assessment Sitting Balance and Reactions Static Sitting Fair Balance Ability Dynamic Sitting Fair Balance Ability Standing Balance and Reactions Static Standing Poor Balance Ability Dynamic Standing Poor Balance Ability M8 OT- IP Objective Assessments Start: 11/09/24 12:42 Freq: Status: Active Protocol: Document 11/09/24 12:43 [facility] (Rec: 11/09/24 13:03 [facility] Desktop) OT Gross Range of Motion Upper Extremity Range of Motion Assessment Bilaterally Impaired ROM Impairments Pt not able to raise his arm above his shoulders per pt due to old rotator cuff injuries years ago. OT Strength Upper Extremity Strength Assessment Bilaterally Impaired M9 OT- IP Assessment and Plan Start: 11/09/24 12:42 Freq: Status: Active Protocol: Document 11/09/24 12:43 [facility] (Rec: 11/09/24 13:03 [facility] Desktop) OT Summary Assessment and Plan Potential Rehabilitation Good Potential Analytic Complexity Moderate at Evaluation Summary OT Impairments Pain,Strength,Balance,Functional Mobility,Grooming, Dressing,Toileting,Bathing,Toilet Transfers,Shower Transfers,Activity Tolerance Progress Towards Slow Progress due to Pain,Slow Progress due to Medical Goals Issues,Slow Progress due to Activity Tolerance Assessment Summary Pt mod complexity and main barriers are pain, LLE buckling when trying to walk, decreased balance and activity tolerance. At this time pt is needing two person assist for mobility and for some ADL needs. Best for pt to go to skilled rehab at this time. Pt has supportive family but pt's current level too much and would require 2 person assist. Goals Self-Feeding Goal Independent Grooming Goal Independent Dressing Goal Minimal Assistance Toileting Goal Standby Assistance Bathing Goal Minimal Assistance Toilet Transfer Goal Standby Assistance Shower Transfer Goal Contact Guard Assistance Days to Meet Goals 20 Frequency of Treatment Other frequency 3-5x/week Treatment Plan OT Treatment Plan ADL Training,Functional Mobility,Patient/Family Education,Discharge Planning Discharge Recommendations OT Discharge SNF Rehab Recommendations Transportation Needs Wheelchair/Cabulance at Discharge
--- NOTE | 2024-11-09 12:09 | P.PN_ITS ---
Subjective Subjective Date Patient Seen: 11/09/24 Time Patient Seen: 12:10 Interval history: ID: [id number] M S/P Left hip pinning for a left femoral neck fracture on 11/08/24 S: Pt reports that his pain is manageable. Reported having a difficult time with the anesthesia from yesterday but is feeling much better. Denies F/C/NS/CP/SOB. Exam Vital Signs (past 8 hours): - 11/09/24 05:11 11/09/24 08:00 Temperature 97.6 F 98.3 F Pulse Rate 75 75 Respiratory Rate 18 18 Blood Pressure 132/56 L 128/54 L Pulse Oximetry 98 95 Oxygen Flow Rate 2 Fraction of Inspired Oxygen 28 Oxygen Delivery Method Nasal Cannula Oxygen Flow Rate 2 Narrative Exam Narrative: LEFT Hip: Dressing C/D/I Neurovascular exam: 5/5 q/h/ta/gc/ehl; SILT s/s/sp/dp/t, 2+ dp LEFT WRist: With dressing that is C/D/I Thumb spica brace in place Objective Labs 11/09/24 04:21 11/09/24 04:21 Labs: Laboratory Results - last 24 hr 11/09/24 04:21 WBC 8.2 RBC 3.93 L Hgb 12.7 L Hct 36.7 L MCV 93.3 MCH 32.2 MCHC 34.5 RDW 15.1 H Plt Count 92 L Neut % (Auto) 81.8 H Lymph % (Auto) 7.8 L Ruther[place] % (Auto) 9.2 Eos % (Auto) 0.8 L Baso % (Auto) 0.4 Neut # (Auto) 6700 Lymph # (Auto) 600 L [place] # (Auto) 800 Eos # (Auto) 100 Baso # (Auto) 0 Sodium 132 L Potassium 4.2 Chloride 101 Carbon Dioxide 25 BUN 24 H Creatinine 0.93 Estimated GFR > 60 BUN/Creatinine Ratio 25.8 H Glucose 201 H Calcium 7.9 L PFSH Medical History (Updated 11/08/24 @ 07:29 by Lemuel Ojeda MD) Bunion of great toe of left foot Callus of foot Social History household members: none Smoking Status: Former smoker Assessment & Plan Post-op Postoperative Procedures: Procedures Operation Date: 11/08/24 12:00 Actual Procedure Side Surgeon p Hip Pinning Left Lemuel Ojeda MD 84yo M s/p left hip pinnning on 11/08/24. Doing well. Currently working with PT while sitting on the side of the bed. No concerns at this time. WBAT on LLE and LUE Dressings to stay in place until 2 week post op appt Thumb SPica brace for wrist support PT/OT DVT Proph per primary team Dispo: Can discharge from an ortho standpoint, follow up with ortho in 2 weeks, appt is already scheduled Lemuel Ojeda MD Postoperative day: 1 Postoperative status: doing well Postoperative plan: routine post-op care Time Spent With Patient Time with patient: less than 15 minutes Quality VTE Deep Vein Thrombosis/Pulmonary Embolism Present on Admission: No
[2024-11-09 16:00] VITALS: BP 129/61; PULSE 72; RESP 16; TEMP 36.6; O2SAT 98
--- NOTE | 2024-11-09 16:51 | PM.PN.1 ---
Subjective Subjective Date Patient Seen: 11/09/24 Interval history: Chief complaint: Ground level fall with left hip pain due to fracture History of present illness: 84 years old male with history of hypertension, lipidemia, CAD, CHF, presents to the ER after ground-level fall tripped on power cord outside of his house. Immediately after that he started complaining of left hip pain laceration of left hand and left elbow. Denies any head injury or loss of consciousness. Denies any chronic falls. In the ER she was found to have mildly impacted left subscapular hip fracture. Orthopedic surgery was consulted and recommended admission for possible surgery and n.p.o. after midnight. Laboratory unremarkable. Hospital course: 11/08: Underwent hip surgery Date of Procedure: 11/08/24 Pre-Op Diagnosis: LEFT Femoral Neck Fracture Post-Op Diagnosis: LEFT Femoral Neck Fracture Procedure: Left Hip Closed reduction and cannulated screw fixation of the femoral neck fracture Surgeon: Lemuel Ojeda MD 11/09: No significant complications after surgery today pain control is satisfactory Review of systems: No fainting spells dizziness lightheadedness No fever or chills weight loss weight gain No chest pain palpitations or shortness a breath or wheezing Nausea vomiting diarrhea constipation No urinary symptoms No paresthesia paresis Physical exam: No acute distress alert and oriented HEENT unremarkable Neck no JVD Heart rate and rhythm regular Lungs clear Abdomen nondistended bowel sounds present Extremities no edema Neuro alert nonfocal Assessment and plan: Subcapital left hip fracture impacted status post ORIF -Bowel regimen while on narcotics -Fall precaution -PT and OT evaluation on discharge DVT prophylaxis: Aspirin 81 b.i.d. per Orthopedic surgery Time-Based Coding :: 25 minutes spent with patient and on the chart (including review of chart, obtaining history, exam, reviewing outside data, placing orders, documenting exam and treatment plan, and counseling patient). Exam Vital Signs (past 8 hours): - 11/09/24 12:00 Temperature 98.1 F Pulse Rate 77 Respiratory Rate 20 Blood Pressure 139/65 Pulse Oximetry 97 Fraction of Inspired Oxygen 28 Oxygen Delivery Method Nasal Cannula Oxygen Flow Rate 2 Objective Labs 11/09/24 04:21 11/09/24 04:21 Labs: Laboratory Results - last 24 hr 11/09/24 04:21 WBC 8.2 RBC 3.93 L Hgb 12.7 L Hct 36.7 L MCV 93.3 MCH 32.2 MCHC 34.5 RDW 15.1 H Plt Count 92 L Neut % (Auto) 81.8 H Lymph % (Auto) 7.8 L [place] % (Auto) 9.2 Eos % (Auto) 0.8 L Baso % (Auto) 0.4 Neut # (Auto) 6700 Lymph # (Auto) 600 L [place] # (Auto) 800 Eos # (Auto) 100 Baso # (Auto) 0 Sodium 132 L Potassium 4.2 Chloride 101 Carbon Dioxide 25 BUN 24 H Creatinine 0.93 Estimated GFR > 60 BUN/Creatinine Ratio 25.8 H Glucose 201 H Calcium 7.9 L PFSH Medical History (Updated 11/08/24 @ 07:29 by Lemuel Ojeda MD) Bunion of great toe of left foot Callus of foot Social History household members: none Smoking Status: Former smoker Assessment & Plan Time-Based Coding :: [TOTAL MINUTES] spent with patient and on the chart (including review of chart, obtaining history, exam, reviewing outside data, placing orders, documenting exam and treatment plan, and counseling patient) on [DATE]. Quality VTE Deep Vein Thrombosis/Pulmonary Embolism Present on Admission: No
[2024-11-09 20:00] VITALS: BP 137/56; PULSE 77; RESP 20; TEMP 36.9; O2SAT 100
[2024-11-09] MEDS: SENNOSIDES 8.6 MG TABLET 17.2 MG PO (22:20)
[2024-11-09] MEDS: ATORVASTATIN 20 MG TABLET 40 MG PO (22:20)
[2024-11-09] MEDS: HYDROCODONE/ACET 5/325 TABLET 1 TAB PO (22:33)
[2024-11-10] VITALS: BP 109/53; PULSE 69; RESP 18; TEMP 36.9; O2SAT 94
[2024-11-10 04:00] VITALS: BP 127/52; PULSE 70; RESP 16; TEMP 36.6; O2SAT 96
[2024-11-10 08:00] VITALS: BP 125/55; PULSE 71; RESP 22; TEMP 36.3; O2SAT 99
[2024-11-10] MEDS: DOCUSATE 100 MG CAPSULE PO ×2 (08:13→20:33)
[2024-11-10] MEDS: TIMOLOL 0.5% OPHTH 1 DROPS EYE-RIGHT ×2 (08:13→21:00)
[2024-11-10] MEDS: ASPIRIN EC 81 MG TABLET PO ×2 (08:13→20:33)
[2024-11-10] MEDS: HYDROCODONE/ACET 5/325 TABLET 1 TAB PO ×3 (08:13→20:39)
[2024-11-10] MEDS: polyethylene glycoL 3350 17 GM POWD.PACK PO (08:13)
--- NOTE | 2024-11-10 08:14 | PM.DS.1 ---
History of Present Illness <Tom Rojas MD - Last Filed: 11/10/24 08:16> History of Present Illness Date Patient Seen: 11/10/24 Chief complaint: Left hip fracture Narrative: Chief complaint: Ground level fall with left hip pain due to fracture History of present illness: 84 years old male with history of hypertension, lipidemia, CAD, CHF, presents to the ER after ground-level fall tripped on power cord outside of his house. Immediately after that he started complaining of left hip pain laceration of left hand and left elbow. Denies any head injury or loss of consciousness. Denies any chronic falls. In the ER she was found to have mildly impacted left subscapular hip fracture. Orthopedic surgery was consulted and recommended admission for possible surgery and n.p.o. after midnight[place] [address] Progress Note Patient: Kenney Liriano MR#: [id number] : 1940 Acct:[id number] Age/Sex: 84 / M Admit Date: 11/07/24 Provider: Tom Rojas MD Subjective Subjective Date Patient Seen: 11/09/24 Interval history: Chief complaint: Ground level fall with left hip pain due to fracture History of present illness: 84 years old male with history of hypertension, lipidemia, CAD, CHF, presents to the ER after ground-level fall tripped on power cord outside of his house. Immediately after that he started complaining of left hip pain laceration of left hand and left elbow. Denies any head injury or loss of consciousness. Denies any chronic falls. In the ER she was found to have mildly impacted left subscapular hip fracture. Orthopedic surgery was consulted and recommended admission for possible surgery and n.p.o. after midnight. Laboratory unremarkable. Hospital course: 11/08: Underwent hip surgery Date of Procedure: 11/08/24 Pre-Op Diagnosis: LEFT Femoral Neck Fracture Post-Op Diagnosis: LEFT Femoral Neck Fracture Procedure: Left Hip Closed reduction and cannulated screw fixation of the femoral neck fracture Surgeon: Lemuel Ojeda MD 11/09: No significant complications after surgery today pain control is satisfactory 11/10: Continued recovery appropriate for discharge to rehab Review of systems: No fainting spells dizziness lightheadedness No fever or chills weight loss weight gain No chest pain palpitations or shortness a breath or wheezing Nausea vomiting diarrhea constipation No urinary symptoms No paresthesia paresis Physical exam: No acute distress alert and oriented HEENT unremarkable Neck no JVD Heart rate and rhythm regular Lungs clear Abdomen nondistended bowel sounds present Extremities no edema Neuro alert nonfocal Assessment and plan: Subcapital left hip fracture impacted -IV Fluids -Nothing by mouth for now -Hold aspirin for now -NWB -Orthopedic consult for F/U -Incentive spirometry -Pain medications as needed -Bowel regimen while on narcotics -Fall precaution -PT and OT evaluation on discharge Time-Based Coding :: 35 minutes spent with patient and on the chart (including review of chart, obtaining history, exam, reviewing outside data, placing orders, documenting exam and treatment plan, and counseling patient). Discharge Providers <Tom Rojas MD - Last Filed: 11/10/24 08:16> Provider Date of admission: 11/07/24 22:46 Primary care physician: John Schultz MD Consults: 11/08/24 17:54 Consult to Discharge Planning Routine Comment: Consult to Occupational Therapy Evaluate & Treat Comment: Physician Instructions: Evaluate and treat Consult to Physical Therapy Evaluate & Treat Comment: Physician Instructions: Evaluate and Treat Discharge provider: Tom Rojas MD <Lemuel Ojeda MD - Last Filed: 11/11/24 21:25> Provider Discharge Date: 11/11/24 Exam <Tom Rojas MD - Last Filed: 11/10/24 08:16> Vital Signs (past 8 hours): - 11/10/24 04:00 Temperature 97.9 F Pulse Rate 70 Respiratory Rate 16 Blood Pressure 127/52 L Pulse Oximetry 96 Oxygen Flow Rate 1 Fraction of Inspired Oxygen 28 Oxygen Delivery Method Nasal Cannula Oxygen Flow Rate 1 Objective <Tom Rojas MD - Last Filed: 11/10/24 08:16> Labs 11/10/24 09:45 11/09/24 04:21 PFSH <Tom Rojas MD - Last Filed: 11/10/24 08:16> Medical History Bunion of great toe of left foot Callus of foot Social History household members: none Discharge Assessment & Plan <Tom Rojas MD - Last Filed: 11/10/24 08:16> Assessment and Plan Assessment: Subcapital left hip fracture impacted status post ORIF Plan of Treatment: Stable for discharge to intermediate facility for rehabilitative efforts. Weight Bearing: Weight bear as tolerated on the operative leg Use walker Pain Control: Elevate the surgery site as much as possible Take pain medications as prescribed Wound Care: Leave the dressing in place until the post operative appt- if the dressing becomes saturated then it can be removed You can take a shower however do not submerge the wound for a month after surgery Follow Up: You already have a clinic appointment scheduled with Dr. Ojeda. If you do not remember the date/time of the appointment please call the [facility] at [phone]. Return Precautions: If you develop any of the following symptoms during working hours, please contact the [facility] at [phone]. -Temperature greater than 100.5 taken twice by 2 hours -Difficulty breathing -Bleeding completely through the dressing -Fevers and chills -Increased pain that is unrelieved by ice, elevating the surgery site, and medications -Painful cast or splint -Redness or drainage at the incision site After working hours please go to the [facility]. Lemuel Ojeda MD Discharge Plan Discharge Plan Patient Disposition: SNF Transfer to: [facility] Under care of provider: SNF Provider. Provider Discharge Comment: Stable for discharge to intermediate facility for rehabilitative efforts. Discharge orders & Medications Prescriptions: New sennosides [senna] 8.6 mg Tablet 17.2 mg PO BEDTIME Qty: 20 0RF acetaminophen 325 mg Tablet 650 mg PO Q6H PRN (Reason: Fever/Mild Pain (1-3)) Qty: 60 0RF polyethylene glycol 3350 17 gram Powder In Packet 17 gm PO DAILY Qty: 20 0RF hydrocodone-acetaminophen 5-325 mg Tablet 1 tab PO Q4H PRN (Reason: Pain, Moderate (4-6)) Qty: 14 0RF melatonin 3 mg Tablet 3 mg PO BEDTIME PRN (Reason: Insomnia) Qty: 1 0RF aspirin 81 mg Tablet,Delayed Release (Dr/Ec) 81 mg PO BID Qty: 1 0RF docusate sodium 100 mg Capsule 100 mg PO BID Qty: 2 0RF ondansetron 4 mg Tablet,Disintegrating 4 mg PO Q4HR PRN (Reason: Nausea And Vomiting) Qty: 12 0RF Continued atorvastatin [Lipitor] 40 MG tablet 40 mg PO HS Qty: 0 losartan 100 mg tablet 100 mg PO DAILY timolol maleate 0.5 % drops 1 drp EYE-RIGHT BID metoprolol tartrate 25 mg PO DAILY melatonin 3 mg PO BEDTIME metoprolol tartrate 25 mg Tablet 25 mg PO DAILY hydrochlorothiazide 12.5 mg Tablet 12.5 mg PO DAILY Discontinued aspirin [Aspir-81] 81 mg tablet,delayed release (DR/EC) 81 mg PO DAILY Medication counseling provided by Pharmacist: No Follow up/Referrals: John Schultz MD [Primary Care Provider, Internal Medicine] Diet/Activity/Treatments Diet: Regular Liquid consistency: Normal/Thin Food texture: Regular Activity: As tolerated. Oxygen: 1LO2 NC Skin/Wound/Dressing Care Dressing: aquacel cdi [facility] Reason for rehabilitation: Post-operative therapy Rehab type: Physical therapy and Occupational therapy Visit Report/Discharge Packet Instructions: DI for Open Reduction Internal Fixation Surgery, DI for Prescription Opioid Use Stand Alone Forms: Patient Portal/API, Stroke Signs & Symptoms Discharge Data Primary Care Provider: John Schultz Quality <Tom Rojas MD - Last Filed: 11/10/24 08:16> VTE Deep Vein Thrombosis/Pulmonary Embolism Present on Admission: No
--- NOTE | 2024-11-10 09:30 | P.PN_ITS ---
Subjective Subjective Date Patient Seen: 11/10/24 Interval history: ID: [id number] M S/P Left hip pinning for a left femoral neck fracture on 11/08/24 S: Pt reports that his pain is manageable. He is frustrated that he continues to have limited mobility. He states that he walked to the bathroom and back with a walker. Denies F/C/NS/CP/SOB. Exam Vital Signs (past 8 hours): - 11/10/24 04:00 11/10/24 08:00 Temperature 97.9 F 97.4 F L Pulse Rate 70 71 Respiratory Rate 16 22 Blood Pressure 127/52 L 125/55 L Pulse Oximetry 96 99 Oxygen Flow Rate 1 0 Fraction of Inspired Oxygen 28 Oxygen Delivery Method Nasal Cannula Oxygen Flow Rate 0 Narrative Exam Narrative: LEFT Hip: Dressing C/D/I Neurovascular exam: 5/5 q/h/ta/gc/ehl; SILT s/s/sp/dp/t, 2+ dp LEFT WRist: With dressing that is C/D/I Thumb spica brace in place Objective Labs 11/09/24 04:21 11/09/24 04:21 [facility] Medical History (Updated 11/08/24 @ 07:29 by Lemuel Ojeda MD) Bunion of great toe of left foot Callus of foot Social History household members: none Smoking Status: Former smoker Assessment & Plan Post-op Postoperative Procedures: Procedures Operation Date: 11/08/24 12:00 Actual Procedure Side Surgeon p Hip Pinning Left Lemuel Ojeda MD Postoperative plan narrative: 84yo M s/p left hip pinnning on 11/08/24. Doing well. He has been walking with physical therapy. No concerns at this time. WBAT on LLE and LUE Dressings to stay in place until 2 week post op appt Thumb SPica brace for wrist support PT/OT DVT Proph per primary team Dispo: Can discharge from an ortho standpoint, follow up with ortho in 2 weeks, appt is already scheduled Lemuel Ojeda MD Quality VTE Deep Vein Thrombosis/Pulmonary Embolism Present on Admission: No
[2024-11-10 09:55] LABS: Add Manual Diff / Slide Review NO; Basophils Absolute Auto 0 /uL (0-100); Basophils Percent Auto 0.6 % (0-2); Eosinophils Absolute Auto 100 /uL (0-450); Eosinophils Percent Auto 1.9 % (2-4); Hematocrit 36.5 % (41-53); Hemoglobin 12.7 g/dL (13.5-17.5); Lymphocytes Absolute Auto 600 /uL (1100-4500); Lymphocytes Percent Auto 8.5 % (25-40); Mean Corpuscular HGB Conc 34.7 % (30-36); Mean Corpuscular Hemoglobin 32.3 PG (26-34); Mean Corpuscular Volume 93.1 fL (80-100); Monocytes Absolute Auto 600 /uL (0-900); Monocytes Percent Auto 8.7 % (3-14); Neutrophils Absolute Auto 5900 /uL (1500-7000); Neutrophils Percent Auto 80.3 % (50-75); Platelet Count 82 X10^3/uL (150-400); Red Blood Cell Count 3.93 X10^6/uL (4.5-5.9); Red Cell Distribution Width 14.9 % (11.6-14.8); White Blood Cell Count 7.3 X10^3/uL (4.5-11.0)
[2024-11-10 12:00] VITALS: BP 129/56; PULSE 73; RESP 18; TEMP 36.4; O2SAT 94
--- NOTE | 2024-11-10 12:51 | CM.DPC ---
DCP Cont. Reviewed EMR and team rounds for status updates. Met with pt at bedside to discuss preferences for SNF rehab. Per his request, faxed clinicals to [facility] for review.
--- NOTE | 2024-11-10 15:24 | OT.IP.TRT ---
Current Diagnoses Fracture of unspecified part of neck of left femur, initial encounter for closed fracture (11/07/24) Unspecified intracapsular fracture of left femur, initial encounter for closed fracture (11/07/24) Surgery Performed Operation Date: 11/08/24 12:00 Actual Procedures p Hip Pinning(Left) - Lemuel Ojeda MD Occupational Therapy Treatment Note M2 OT-IP Current Condition Start: 11/09/24 12:42 Freq: Status: Active Protocol: Document 11/09/24 12:43 [facility] (Rec: 11/09/24 13:03 [facility] Desktop) Occupational Therapy Current Condition Current Condition Evaluation Date 11/09/24 Treatment Diagnosis Left hip femoral neck fracture, lacerated hand/elbow Diagnosis Onset Date 11/07/24 Weight Bearing Status Weight Bearing Weight Bear as Tolerated Status Allowed Weight Surgeon came in to clarify that his left arm and left Bearing Amount ( LE are WBAT. enter % or #) (%) M3 OT- IP Subjective and Pain Start: 11/09/24 12:42 Freq: Status: Active Protocol: Document 11/10/24 14:55 [facility] (Rec: 11/10/24 16:08 [facility] Desktop) OT- Subjective Occupational Therapy Visit Type Type Treatment Note Visit Start Time 14:55 Visit Stop Time 15:24 Occupational Therapy Visit Comments Patient Comments Pt agreed to get up to try to use the BSC. Patient/Caregiver To get better. Goals OT Pain Assessment Pain When Pain Assessed During Mobility Pain Present Pain Present Pain Reported Location Left hip Intensity 5 Scale Used Numeric (0 - 10) M4 OT- IP ADL's Start: 11/09/24 12:42 Freq: Status: Active Protocol: Document 11/10/24 14:55 [facility] (Rec: 11/10/24 16:08 [facility] Desktop) OT [id number] Comments OT Self-Feeding Not observed. Comments OT ADL-Grooming General Evaluation Areas Needing Retrieving/Set-up of Grooming Items Assistance Comments OT Grooming Comments Pt able to wash his face after set-up on wash cloth. OT ADL-Oral Care Comments Oral Care Comments Not performed. OT ADL-Dressing General Eval Lower Body Dressing Maximum Assistance Ability Areas Needing Socks Assistance Comments OT Dressing Comments Able to go over and practice use of LB dressing equipment. Gave daughter list of items that pt may need. OT ADL-Toileting Comments OT Toileting Suggested pt get a toilet paper aid as pt has Comments difficulty to be able to wipe himself. OT ADL-Bathing Comments OT Bathing Comments Sponge bath more appropriate at this time. M5 OT- IP IADL's Start: 11/09/24 12:42 Freq: Status: Active Protocol: Document 11/09/24 12:43 [facility] (Rec: 11/09/24 13:03 [facility] Desktop) OT-Instrumental Activities of Daily Living Home Safety Awareness Home Safety Comments Pt is aware at this time will not be able to care fore himself. Meal Preparation Meal Preparation Pt will need assist. Comments Chronometer Tester Chronometer Tester Pt will need assist. Comments M6 OT- IP Functional Cognition Start: 11/09/24 12:42 Freq: Status: Active Protocol: Document 11/10/24 14:55 [facility] (Rec: 11/10/24 16:08 [facility] Desktop) Cognitive Factors Limiting Selfcare Function Cognitive Comments Cognitive Assessment Pt still needing safety cues for FWW use, weight Comments shifting, and for overall safety. M7 OT- IP Mobility and Balance Start: 11/09/24 12:42 Freq: Status: Active Protocol: Document 11/10/24 14:55 [facility] (Rec: 11/10/24 16:08 [facility] Desktop) OT- Bed Mobility Assessment Supine to Sit Supine to Sit Assist Maximum Assistance,1 Person Assistance OT-Transfer Assessment Sit to and From Stand Sit to and from Moderate Assistance,1 Person Assistance,2 Person Stand Assistance Transfers Transfer Ability Moderate Assistance,2 Person Assistance Technique Transfer Destination Bed,Bedside Commode,Car Devices Transfer Assistive Gait Belt,Front Wheeled Walker Devices Comments Mobility Comments Pt moving a little better today, however still needing assist for weight shifting, FWW guidance and for his balance. Pt needing MODA 1-2 to stand pending on height of the surface and MODA 1-2 as pt tires and needing 2nd person for assist. OT- Balance Assessment Sitting Balance and Reactions Static Sitting Good Balance Ability Dynamic Sitting Fair Balance Ability Standing Balance and Reactions Static Standing Poor Balance Ability Dynamic Standing Poor Balance Ability M8 OT- IP Objective Assessments Start: 11/09/24 12:42 Freq: Status: Active Protocol: Document 11/09/24 12:43 [facility] (Rec: 11/09/24 13:03 [facility] Desktop) OT Gross Range of Motion Upper Extremity Range of Motion Assessment Bilaterally Impaired ROM Impairments Pt not able to raise his arm above his shoulders per pt due to old rotator cuff injuries years ago. OT Strength Upper Extremity Strength Assessment Bilaterally Impaired M9 OT- IP Assessment and Plan Start: 11/09/24 12:42 Freq: Status: Active Protocol: Document 11/10/24 14:55 [facility] (Rec: 11/10/24 16:08 [facility] Desktop) OT Summary Assessment and Plan Potential Rehabilitation Good Potential Analytic Complexity Moderate at Evaluation Summary OT Impairments Pain,Strength,Balance,Functional Mobility,Grooming, Dressing,Toileting,Bathing,Toilet Transfers,Shower Transfers,Activity Tolerance Progress Towards Progressing Toward Goals Goals Assessment Summary Pt able to try to use the bsc, and LB dressing needs for OT today. Pt is a little steadier on his feet, but still needing two person assist especially as he tires and when turning with the FWW. Pt to go to skilled rehab when medically stable. Goals Self-Feeding Goal Independent Grooming Goal Independent Dressing Goal Standby Assistance,Long Handled Shoe Horn,Superintendent Refuse Disposal,Sock Aid Toileting Goal Standby Assistance,Toilet Paper Aid Bathing Goal Minimal Assistance Toilet Transfer Goal Standby Assistance Shower Transfer Goal Contact Guard Assistance Days to Meet Goals 25 Frequency of Treatment Other frequency 5x/week Treatment Plan OT Treatment Plan ADL Training,Functional Mobility,Patient/Family Education,Discharge Planning Discharge Recommendations OT Discharge SNF Rehab Recommendations Transportation Needs Wheelchair/Cabulance at Discharge
--- NOTE | 2024-11-10 15:44 | P.PN_ITS ---
Subjective Subjective Date Patient Seen: 11/10/24 Interval history: Chief complaint: Ground level fall with left hip pain due to fracture History of present illness: 84 years old male with history of hypertension, lipidemia, CAD, CHF, presents to the ER after ground-level fall tripped on power cord outside of his house. Immediately after that he started complaining of left hip pain laceration of left hand and left elbow. Denies any head injury or loss of consciousness. Denies any chronic falls. In the ER she was found to have mildly impacted left subscapular hip fracture. Orthopedic surgery was consulted and recommended admission for possible surgery and n.p.o. after midnight. Laboratory unremarkable. Hospital course: 11/08: Underwent hip surgery Date of Procedure: 11/08/24 Pre-Op Diagnosis: LEFT Femoral Neck Fracture Post-Op Diagnosis: LEFT Femoral Neck Fracture Procedure: Left Hip Closed reduction and cannulated screw fixation of the femoral neck fracture Surgeon: Lemuel Ojeda MD 11/09: No significant complications after surgery today pain control is satisfactory 11/10: No significant complications cleared by Orthopedic surgery for discharge case management is exploring rehab senior living Review of systems: No fainting spells dizziness lightheadedness No fever or chills weight loss weight gain No chest pain palpitations or shortness a breath or wheezing Nausea vomiting diarrhea constipation No urinary symptoms No paresthesia paresis Physical exam: No acute distress alert and oriented HEENT unremarkable Neck no JVD Heart rate and rhythm regular Lungs clear Abdomen nondistended bowel sounds present Extremities no edema Neuro alert nonfocal Assessment and plan: Subcapital left hip fracture impacted status post ORIF -Bowel regimen while on narcotics -Fall precaution -PT and OT evaluation on discharge DVT prophylaxis: Aspirin 81 b.i.d. per Orthopedic surgery Time-Based Coding :: 35 minutes spent with patient and on the chart (including review of chart, obtaining history, exam, reviewing outside data, placing orders, documenting exam and treatment plan, and counseling patient). Exam Vital Signs (past 8 hours): - 11/10/24 08:00 11/10/24 08:00 11/10/24 12:00 Temperature 97.4 F L 97.5 F L Pulse Rate 71 73 Respiratory Rate 22 18 Blood Pressure 125/55 L 129/56 L Pulse Oximetry 99 94 Oxygen Delivery Method Room Air Oxygen Flow Rate 0 1 Fraction of Inspired Oxygen 28 Oxygen Delivery Method Room Air Oxygen Flow Rate 1 Objective Labs 11/10/24 09:45 11/09/24 04:21 Labs: Laboratory Results - last 24 hr 11/10/24 09:45 WBC 7.3 RBC 3.93 L Hgb 12.7 L Hct 36.5 L MCV 93.1 MCH 32.3 MCHC 34.7 RDW 14.9 H Plt Count 82 L Neut % (Auto) 80.3 H Lymph % (Auto) 8.5 L Whitley % (Auto) 8.7 Eos % (Auto) 1.9 L Baso % (Auto) 0.6 Neut # (Auto) 5900 Lymph # (Auto) 600 L Whitley # (Auto) 600 Eos # (Auto) 100 Baso # (Auto) 0 PFSH Medical History (Updated 11/08/24 @ 07:29 by Lemuel Ojeda MD) Bunion of great toe of left foot Callus of foot Social History household members: none Smoking Status: Former smoker Assessment & Plan Time-Based Coding :: [TOTAL MINUTES] spent with patient and on the chart (including review of chart, obtaining history, exam, reviewing outside data, placing orders, documenting exam and treatment plan, and counseling patient) on [DATE]. Quality VTE Deep Vein Thrombosis/Pulmonary Embolism Present on Admission: No
--- NOTE | 2024-11-10 15:47 | DI.RAD.S_ITS ---
PROCEDURE: XR CHEST 1V INDICATIONS: Dyspnea TECHNIQUE: One view of the chest was acquired. COMPARISON: [facility], , XR CHEST 1V, 11/07/2024, 18:24. [facility], CR, XR CHEST 1V, 01/05/2020, 9:57. FINDINGS: Surgical changes and devices: Leadless pacemaker redemonstrated. Lungs and pleura: Emphysematous changes most notably at the right upper lobe. No pleural effusions or pneumothorax. Mediastinum: Mediastinal contours appear normal. Heart size is normal. Bones and chest wall: Severe degenerative changes in the shoulders. Degenerative changes are seen in the spine. No suspicious bony lesions. Overlying soft tissues appear unremarkable. IMPRESSION: No acute cardiopulmonary abnormality is seen. Approved by: Boogie John M.D. on 11/10/2024 at 16:35
[2024-11-10 16:00] VITALS: BP 151/76; PULSE 75; RESP 20; TEMP 36.6; O2SAT 96
[2024-11-10 20:00] VITALS: BP 112/47; PULSE 69; RESP 16; TEMP 36.6; O2SAT 98
[2024-11-10] MEDS: SENNOSIDES 8.6 MG TABLET 17.2 MG PO (20:33)
[2024-11-10] MEDS: MELATONIN 3 MG TABLET PO (20:34)
[2024-11-10] MEDS: ATORVASTATIN 20 MG TABLET 40 MG PO (20:39)
[2024-11-10] MEDS: ACETAMINOPHEN 325 MG TABLET 650 MG PO (23:47)
[2024-11-11] MEDS: HYDROCODONE/ACET 5/325 TABLET 1 TAB PO ×2 (00:26→09:47)
[2024-11-11 03:28] VITALS: O2SAT 98
[2024-11-11 04:00] VITALS: BP 138/53; PULSE 73; RESP 16; TEMP 36.4; O2SAT 96
--- NOTE | 2024-11-11 07:26 | PM.PNPO.1 ---
Subjective Subjective Date Patient Seen: 11/11/24 Interval history: ID: [id number] M S/P Left hip pinning for a left femoral neck fracture on 11/08/24 S: Pt reports that his left thigh is sore and he has a sense of throbbing. He worked with PT yesterday. Was able to walk about the room. Denies F/C/NS/CP/SOB. Exam Vital Signs (past 8 hours): - 11/11/24 03:28 11/11/24 04:00 Temperature 97.5 F L Pulse Rate 73 Respiratory Rate 16 Blood Pressure 138/53 L Pulse Oximetry 98 96 Oxygen Delivery Method Nasal Cannula Oxygen Flow Rate 1 1 Fraction of Inspired Oxygen 24 Fraction of Inspired Oxygen 24 SaO2/FiO2 Ratio 408 Oxygen Delivery Method Nasal Cannula Oxygen Flow Rate 1 Narrative Exam Narrative: LEFT Hip: Dressing C/D/I Neurovascular exam: 5/5 q/h/ta/gc/ehl; SILT s/s/sp/dp/t, 2+ dp LEFT WRist: With dressing that is C/D/I Thumb spica brace in place Objective Labs 11/10/24 09:45 11/09/24 04:21 Labs: Laboratory Results - last 24 hr 11/10/24 09:45 WBC 7.3 RBC 3.93 L Hgb 12.7 L Hct 36.5 L MCV 93.1 MCH 32.3 MCHC 34.7 RDW 14.9 H Plt Count 82 L Neut % (Auto) 80.3 H Lymph % (Auto) 8.5 L Divide % (Auto) 8.7 Eos % (Auto) 1.9 L Baso % (Auto) 0.6 Neut # (Auto) 5900 Lymph # (Auto) 600 L Divide # (Auto) 600 Eos # (Auto) 100 Baso # (Auto) 0 PFSH Medical History (Updated 11/08/24 @ 07:29 by Lemuel Ojeda MD) Bunion of great toe of left foot Callus of foot Social History household members: none Smoking Status: Former smoker Assessment & Plan Post-op Postoperative Procedures: Procedures Operation Date: 11/08/24 12:00 Actual Procedure Side Surgeon p Hip Pinning Left Lemuel Ojeda MD Postoperative status narrative: 84yo M s/p left hip pinnning on 11/08/24. Doing well. He has been walking with physical therapy. Still on 2L of O2. WBAT on LLE and LUE Dressings to stay in place until 2 week post op appt Thumb Spica brace for wrist support PT/OT DVT Proph per primary team Dispo: Can discharge from an ortho standpoint, follow up with ortho in 2 weeks. Lemuel Ojeda MD Time Spent With Patient Time with patient: less than 15 minutes Quality VTE Deep Vein Thrombosis/Pulmonary Embolism Present on Admission: No
[2024-11-11 08:11] VITALS: BP 122/52; PULSE 68; RESP 18; TEMP 36.5; O2SAT 98
[2024-11-11] MEDS: METOPROLOL ER 25 MG TABLET PO (09:46)
[2024-11-11] MEDS: hydroCHLOROthiazide 25 MG TABLET 12.5 MG PO (09:46)
[2024-11-11] MEDS: ASPIRIN EC 81 MG TABLET PO (09:46)
[2024-11-11] MEDS: polyethylene glycoL 3350 17 GM POWD.PACK PO (09:47)
[2024-11-11] MEDS: DOCUSATE 100 MG CAPSULE PO (09:47)
[2024-11-11] MEDS: TIMOLOL 0.5% OPHTH 1 DROPS EYE-RIGHT (09:48)
--- NOTE | 2024-11-11 10:32 | PT.IPTN ---
Current Diagnoses Fracture of unspecified part of neck of left femur, initial encounter for closed fracture (11/07/24) Unspecified intracapsular fracture of left femur, initial encounter for closed fracture (11/07/24) Surgery Performed Operation Date: 11/08/24 12:00 Actual Procedures p Hip Pinning(Left) - Lemuel Oejda MD Physical Therapy Treatment Note M2 PT-IP Current Condition Start: 11/09/24 14:11 Freq: NEEDED Status: Discharge Protocol: Document 11/11/24 10:13 SP (Rec: 11/11/24 13:29 SP [id number]) Physical Therapy Current Condition Current Condition Evaluation Date 11/09/24 Treatment Diagnosis L femoral neck fx s/p L ORIF; difficulty in walking Onset Date 11/07/24 M3 PT-IP Subjective Start: 11/09/24 14:11 Freq: NEEDED Status: Discharge Protocol: Document 11/11/24 10:13 SP (Rec: 11/11/24 13:29 SP [id number]) Subjective Physical Therapy Visit Type Type Treatment Note Visit Start Time 10:13 Visit Stop Time 10:32 Number of FLIGHT SECURITY SPECIALIST Visits 0 Physical Therapy Visit Comments Patient Comments Pt agreeable to working with pt. Therapy Pain Assessment Pain When Pain Assessed During Mobility Pain Present Pain Present Pain Reported Location Left hip Intensity 7 Scale Used 7-8/10 Description Tender,With Movement Pain Behaviors Facial Grimacing,Guarding,Restlessness,Wincing Pain Management Distraction,Modification of Treatment,Re-positioning, Techniques Timing of Activity with Medications M4 PT-IP Mobility and Gait Start: 11/09/24 14:11 Freq: NEEDED Status: Discharge Protocol: Document 11/11/24 10:13 SP (Rec: 11/11/24 13:29 SP [id number]) PT-Transfer Assessment Sit to and From Stand Sit to and from Maximum Assistance,1 Person Assistance,Use of Upper Stand Extremities Equipment Transfer Assistive Gait Belt,Front Wheeled Walker Device Orthotic/Prosthetic No Devices or Brace: Transfers Transfer Destination Bed,Chair Transfer Technique stand step pivot with FWW Transfer Ability Level of Assist Moderate Assistance,Maximum Assistance,1 Person Assistance,Use of Upper Extremities Comments Mobility Comments Pt was up in chair when arrived. Vitals WNL: BP 121/75 HR 77 SaO2 96% on 1L, post mobility 131/65 HR 77 SaO2 83-92% on 1L with cues for breath awareness, recovers quickly. Pt self scoot to edge chair BUE on chair arms, requires heavy support gait belt use at trunk sit> stand with FWW. Decreased stance time on LLE due to pain tolerance, small step length step to gait with FWW , chair<> bed. See gait comments. Cues for proper hand placement Max> MIn A with reps. Cues for breath during mobility for safety increased SaO2 83>92% on 1L, recovers quickly. Pt had call light, legs elevated with call light and all needs in reach before left room. Pt reported of pain in L hip like something underneath him, FLIGHT SECURITY SPECIALIST didn't see anything, notified nursing provide CP and waffle cushion for sitting comfort support for pt with chair alarm for safety fall risk. Pt and FLIGHT SECURITY SPECIALIST discussed and SNF for increased strength and mobility continued skilled PT with pt in agreement. Gait Assessment Gait Gait Assistance Moderate Assistance,Maximum Assistance,1 Person Assist Required: Distance (Feet) 3 Able to Maintain Yes Weight Bearing Status During Gait Assistive Devices Assistive Device Gait Belt,Front Wheeled Walker Orthotic/Prosthetic No Devices or Brace: Gait Deviations General Gait Pattern Decreased Stride Length,Decreased Feet Clearance,Flexed Trunk,Step-to Gait Factors Limiting Gait Function Factors Limiting Decreased Activity Tolerance,Decreased Strength,Limited Gait Function Range of Motion,Pain,Poor Balance,Poor Safety Awareness,Respiratory Distress Comments Gait Comments step to patterning, heavy BUE WB on FWW during LLE decreased stance time tolerated, 1 step cues needed for sequencing each LE and FWW during short distance stepping chair<> bed including pivot turn Max>Mod A x1. Stair Climbing Assessment Comments Stair Climbing Unable to assess, due to decreased strength/stance time Comments into LLE, unstable with FWW. PT-Balance Assessment Sitting Balance and Reactions Static Sitting Good Balance Ability Dynamic Sitting Fair Balance Ability Standing Balance and Reactions Static Standing Poor Balance Ability Dynamic Standing Poor Balance Ability Device Used FWW M5 PT-IP Objective Assessments Start: 11/09/24 14:11 Freq: NEEDED Status: Discharge Protocol: Document 11/09/24 11:05 AB (Rec: 11/09/24 14:23 AB [id number]) Orientation Orientation/Cognition Level of Alertness Alert Orientation Name,Place,Situation Language Function Hard of Hearing Ability Safety Awareness Decreased Safety Awareness Memory Description Short Term Impaired Gross Range of Motion Lower Extremity ROM Assessment Within Functional Limits Strength Lower Extremity Strength Assessment Left Impaired Hip 3-/5 Knee 3-/5 Coordination Assessment Gross Coordination Gross Coordination WNL Sensation Assessment Sensation Gross Sensation WNL Muscle Tone Muscle Tone WNL Yes M6 PT-IP Treatment Start: 11/09/24 14:11 Freq: NEEDED Status: Discharge Protocol: Document 11/11/24 10:13 SP (Rec: 11/11/24 13:29 SP [id number]) Physical Therapy Treatment Education Education Provided Safety M7 PT-IP Assessment and Plan Start: 11/09/24 14:11 Freq: NEEDED Status: Discharge Protocol: Document 11/11/24 10:13 SP (Rec: 11/11/24 13:29 SP [id number]) PT Summary Assessment and Plan Potential Rehabilitation Fair Potential Summary Impairments Pain,ROM,Strength,Balance,Coordination,Sensation,Tone, Cognition,Bed Mobility,Transfers,Gait,Activity Tolerance Progress Towards Slow Progress due to Pain,Slow Progress due to Activity Goals Tolerance Assessment Summary Pt decreased mobility distance stand step pivot only approx 3 ft today decreased LLE stance time unsteady midstance due to pain in L hip/heavy BUE WB use of FWW and Max>Mod A x1 with 1 step cues for sequencing BLE/ FWW today. Decreased SaO2 on 1L 83-92% cues for breath, recovers quickly. Continued recommend skilled PT SNF for progress functional mobility with FWW. Will continue to assess progress. Goals Bed Mobility Goal Minimal Assistance Transfer Goal Minimal Assistance,Front Wheeled Walker Gait Goal Minimal Assistance,Front Wheel Walker Gait Distance 50 Other Goals improve bed mobility, transfers, ambulation using FWW CGA ~ 100 ft up/down 5 steps R rail SBA Days to Meet Goals 10 Frequency of Treatment Other frequency 1-2x/day Treatment Plan Physical Therapy Bed Mobility Training,Transfer Training,Gait Training, Treatment Plan Therapeutic Exercise,Balance Retraining,Post Op Education,Discharge Planning,Hot or Cold Pack, Neuromuscular Re-ed,Coordination Retraining,Manual Therapy Other LE ex, bed mobility, transfers, gait if able/tolerated Recommendations and with FWW. Next Treatment Focus Precautions Brace L wrist support: WBAT Weight Bearing Status Weight Bearing Weight Bear as Tolerated Status Allowed Weight LLE WBAT Bearing Amount ( enter % or #) (%) Recommendations To Nursing Amount of Assist 2 Person Assist Needed Discharge Recommendations PT Discharge SNF Rehab Recommendations Equipment Needed for FWW if unable to get at [place] Home Before Discharge Transportation Needs Wheelchair/Cabulance at Discharge - PT assist 2
--- NOTE | 2024-11-11 10:32 | P.DS_ITS ---
History of Present Illness History of Present Illness Chief complaint: Left hip fracture Narrative: History of present illness: 84 years old male with history of hypertension, lipidemia, CAD, CHF, presents to the ER after ground-level fall tripped on power cord outside of his house. Immediately after that he started complaining of left hip pain laceration of left hand and left elbow. Denies any head injury or loss of consciousness. Denies any chronic falls. In the ER she was found to have mildly impacted left subscapular hip fracture. Orthopedic surgery was consulted and recommended admission for possible surgery and n.p.o. after midnight. Laboratory unremarkable. Discharge Providers Provider Date of admission: 11/07/24 22:46 Discharge Date: 11/11/24 Primary care physician: John Schultz MD Consults: 11/08/24 17:54 Consult to Discharge Planning Routine Comment: Consult to Occupational Therapy Evaluate & Treat Comment: Physician Instructions: Evaluate and treat Consult to Physical Therapy Evaluate & Treat Comment: Physician Instructions: Evaluate and Treat Discharge provider: Joseph Hernandez MD Summary Hospital Course Discharge Diagnosis: Subcapital left hip fracture impacted status post ORIF Other stable problems: HTN CAD HLD CHF Hospital Course: 11/08: Underwent hip surgery Date of Procedure: 11/08/24 Pre-Op Diagnosis: LEFT Femoral Neck Fracture Post-Op Diagnosis: LEFT Femoral Neck Fracture Procedure: Left Hip Closed reduction and cannulated screw fixation of the femoral neck fracture Surgeon: Lemuel Ojeda MD 3: No significant complications after surgery today pain control is satisfactory 11/10: No significant complications cleared by Orthopedic surgery for discharge case management is exploring rehab care home 11/11: stable fro discharge to [facility]) Status at Discharge Cognitive/behavioral status at discharge: oriented Functional status at discharge: uses cane/walker Overall status at discharge: patient is progressing back to baseline Time Spent with Patient Time spent: Greater than 30 minutes Exam Vital Signs (past 8 hours): - 11/11/24 03:28 11/11/24 04:00 11/11/24 08:11 Temperature 97.5 F L 97.7 F Pulse Rate 73 68 Respiratory Rate 16 18 Blood Pressure 138/53 L 122/52 L Pulse Oximetry 98 96 98 Oxygen Delivery Method Nasal Cannula Oxygen Flow Rate 1 1 1 Fraction of Inspired Oxygen 24 Fraction of Inspired Oxygen 24 SaO2/FiO2 Ratio 408 Oxygen Delivery Method Nasal Cannula Oxygen Flow Rate 1 Narrative Exam Narrative: NAD, alert and oriented. Fluent speech. Lungs are clear, normal rate and effort. Heart is regular, no murmur gallop or rub. Abdomen is soft, non distended. Extremities are free of edema. Objective ECG Impression: Intervals [place] Rate: 75 P: [place]: QRS: 77 QRSD: 158 T: -44 QT: 416 QTc: 464 Interpretive Statements Ventricular-paced rhythm Imaging Multiple studies:: Radiologist's impression: Chest x-ray: No acute cardiopulmonary abnormality is seen. Shoulder x-ray: No displaced fracture. Severe glenohumeral and acromioclavicular osteoarthritis. Sequela of rotator cuff injury. Hip x-ray: Expected post-operative appearance status post left femoral neck ORIF. Lower extremity CT: IMPRESSION: Mildly impacted left subcapital hip fracture. Background degenerative changes. Surrounding hematoma and edema, extending along the iliopsoas Labs 11/10/24 09:45 11/09/24 04:21 [facility] Medical History Bunion of great toe of left foot Callus of foot Social History household members: none Smoking Status: Former smoker Discharge Assessment & Plan Assessment and Plan Assessment: Subcapital left hip fracture impacted status post ORIF Plan of Treatment: Stable for discharge to care home facility for rehabilitative efforts. Weight Bearing: Weight bear as tolerated on the operative leg Use walker Pain Control: Elevate the surgery site as much as possible Take pain medications as prescribed Wound Care: Leave the dressing in place until the post operative appt- if the dressing becomes saturated then it can be removed You can take a shower however do not submerge the wound for a month after surgery Follow Up: You already have a clinic appointment scheduled with Dr. Ojeda. If you do not remember the date/time of the appointment please call the [facility] at [phone]. Return Precautions: If you develop any of the following symptoms during working hours, please contact the [facility] at [phone]. -Temperature greater than 100.5 taken twice by 2 hours -Difficulty breathing -Bleeding completely through the dressing -Fevers and chills -Increased pain that is unrelieved by ice, elevating the surgery site, and medications -Painful cast or splint -Redness or drainage at the incision site After working hours please go to the [facility]. Lemuel Ojeda MD Discharge Plan Discharge Plan Patient Disposition: SNF Transfer to: [facility] Under care of provider: SNF Provider. Provider Discharge Comment: Stable for discharge to care home facility for rehabilitative efforts. Discharge orders & Medications Prescriptions: New sennosides [senna] 8.6 mg Tablet 17.2 mg PO BEDTIME Qty: 20 0RF acetaminophen 325 mg Tablet 650 mg PO Q6H PRN (Reason: Fever/Mild Pain (1-3)) Qty: 60 0RF polyethylene glycol 3350 17 gram Powder In Packet 17 gm PO DAILY Qty: 20 0RF hydrocodone-acetaminophen 5-325 mg Tablet 1 tab PO Q4H PRN (Reason: Pain, Moderate (4-6)) Qty: 14 0RF melatonin 3 mg Tablet 3 mg PO BEDTIME PRN (Reason: Insomnia) Qty: 1 0RF aspirin 81 mg Tablet,Delayed Release (Dr/Ec) 81 mg PO BID Qty: 1 0RF docusate sodium 100 mg Capsule 100 mg PO BID Qty: 2 0RF ondansetron 4 mg Tablet,Disintegrating 4 mg PO Q4HR PRN (Reason: Nausea And Vomiting) Qty: 12 0RF Continued atorvastatin [Lipitor] 40 MG tablet 40 mg PO HS Qty: 0 losartan 100 mg tablet 100 mg PO DAILY timolol maleate 0.5 % drops 1 drp EYE-RIGHT BID metoprolol tartrate 25 mg PO DAILY melatonin 3 mg PO BEDTIME metoprolol tartrate 25 mg Tablet 25 mg PO DAILY hydrochlorothiazide 12.5 mg Tablet 12.5 mg PO DAILY Discontinued aspirin [Aspir-81] 81 mg tablet,delayed release (DR/EC) 81 mg PO DAILY Follow up/Referrals: John Schultz MD [Primary Care Provider, Internal Medicine] Diet/Activity/Treatments Diet: Regular Food texture: Regular Activity: As toelrated. Special Rehabilitation Services Reason for rehabilitation: Post-operative therapy Rehab type: Physical therapy and Occupational therapy Visit Report/Discharge Packet Instructions: DI for Open Reduction Internal Fixation Surgery, DI for Prescription Opioid Use Stand Alone Forms: Patient Portal/API Discharge Data Primary Care Provider: John Schultz Quality VTE Deep Vein Thrombosis/Pulmonary Embolism Present on Admission: No
--- NOTE | 2024-11-11 11:43 | CM.DPC ---
DCP Discharge SNF Per MD, pt medically stable to d/c to SNF today and discharge orders placed and no identified barriers to discharge. Per PT/OT, still recommending SNF rehab before home and pt remains agreeable. SW confirmed [facility] can still accept today and provide transport around 1400. SW met bedside with pt and explained role and updated on d/c plan and pt confirms he is agreeable and requests SW call his Dtr Annabel to update as well. SW called Dtr and she is agreeable and appreciative and will let her brother know as well and they will visit pt once he gets settled at [facility]. Updated RN and provided number to call report and updated recruiter coordinator and SALES ARCHITECT. ROLANDO Joseph kindly faxed [facility], signed med list, scripts, d/c summary and orders to [facility] to review. Plan; Patient to d/c to [facility] today via facility van at 1400 before safe return home with family support. KAYCEE Zhao
--- NOTE | 2024-11-11 13:01 | PC.NURSE ---
Patient discharged to SNF, report called. Bhupendra to [facility].
== END 2024-11-11 12:59 | DRG 482 ==
LOC: ED 17:57 → AC 22:46
PROVIDERS: Internal Medicine; Orthopaedic Surgery; Admitting Provider Internal Medicine; Emergency Provider Emergency Medicine; PCP Internal Medicine; Referring Provider Emergency Medicine; Visit Provider Internal Medicine
PROC: 0QS734Z Reposition Left Upper Femur with Internal Fixation Device, Percutaneous Approach (ICD-10-PCS; principal; 2024-11-08 12:00)
DX: S72.012A Unspecified intracapsular fracture of left femur, initial encounter for closed fracture (principal); S61.412A Laceration without foreign body of left hand, initial encounter; S51.012A Laceration without foreign body of left elbow, initial encounter; E78.5 Hyperlipidemia, unspecified; I25.10 Atherosclerotic heart disease of native coronary artery without angina pectoris; I50.9 Heart failure, unspecified; I11.0 Hypertensive heart disease with heart failure; W01.0XXA Fall on same level from slipping, tripping and stumbling without subsequent striking against object, initial encounter; Z87.891 Personal history of nicotine dependence
CPT/HCPCS: 12004; 27235; 29260; 36415; 71045; 73030; 73080; 73130; 73502; 73700; 76000; 80048; 80053; 81001; 85025; 85610; 93005; 94762; 96374; 96375; 96376; 97162; 97166; 97530; 97535; 99233; 99284; C1713; J0131; J0690; J1171; J1885; J2405; J2704; J3010